=== PATIENT | male | born 1940 | race Caucasian/White ===

== ENCOUNTER → 2018-01-14 09:09 | Outpatient (CLI) | payer OTHER, SELFPAY ==
[2018-01-14 11:32] LABS: Alanine Aminotransferase 72 IU/L (21-72); Albumin 4.3 g/dL (3.5-5.0); Albumin Globulin Ratio 1.2 (1.0-2.8); Alkaline Phosphatase 58 U/L (38-126); Aspartate Aminotransferase 66 IU/L (17-59); Bilirubin Total 0.7 mg/dL (0.2-1.3); Bilirubin Unconjugated 0.5 mg/dL (0.0-1.1); Cholesterol 129 mg/dL (140-199); Globulin 3.5 g/dL (1.7-4.1); HDL Cholesterol 36 mg/dL (40-60); HEMOLYSIS 17 (0-50); LDL Cholesterol Calculated 68 mg/dL (<100); Total Protein 7.8 g/dL (6.3-8.2); Triglycerides 126 mg/dL (35-150)
== END ==
PROVIDERS: Family Provider Internal Medicine; PCP Internal Medicine; Visit Provider Internal Medicine
DX: K76.0 Fatty (change of) liver, not elsewhere classified (principal); E78.00 Pure hypercholesterolemia, unspecified
CPT/HCPCS: 36415; 80061; 80076

== ENCOUNTER → 2018-03-03 16:47 | Outpatient (CLI) | payer OTHER, SELFPAY ==
--- NOTE | 2018-03-03 | DI.RAD.S_ITS ---
PROCEDURE: XR FOOT LT MIN 3V INDICATIONS: Foot Pain TECHNIQUE: 3 views of the foot were acquired. COMPARISON: 02/16/2005. FINDINGS: Bones: No fractures or dislocations. No suspicious bony lesions. Healed fracture deformity in the proximal left fifth phalanx. Soft tissues: No tibiotalar joint effusion. Achilles tendon appears normal. IMPRESSION: No acute fractures or dislocations. If symptoms persist consider followup radiographs in 7-10 days or noncontrast MRI if there is concern for osteomyelitis. Dictated by: Rolando Chambers M.D. on 03/03/2018 at 17:25 Approved by: Rolando Chambers M.D. on 03/03/2018 at 17:27
--- NOTE | 2018-03-03 16:51 | DI.RAD.S_ITS ---
PROCEDURE: XR FOOT RT MIN 3V INDICATIONS: RIGHT FOOT PAIN TECHNIQUE: 3 views of the foot were acquired. COMPARISON: None. FINDINGS: Bones: No fractures or dislocations. No suspicious bony lesions. Soft tissues: No tibiotalar joint effusion. Achilles tendon appears normal. IMPRESSION: No acute fractures or dislocations. Dictated by: Rolando Chambers M.D. on 03/03/2018 at 17:27 Approved by: Rolando Chambers M.D. on 03/03/2018 at 17:27
== END ==
PROVIDERS: Family Provider Internal Medicine; PCP Internal Medicine; Visit Provider Internal Medicine
DX: M79.671 Pain in right foot (principal); M79.672 Pain in left foot
CPT/HCPCS: 73630

== ENCOUNTER → 2018-03-05 11:56 | Outpatient (CLI) | payer OTHER, SELFPAY ==
[2018-03-05 12:55] LABS: Uric Acid 6.4 mg/dL (3.5-8.5)
== END ==
PROVIDERS: Family Provider Internal Medicine; PCP Internal Medicine; Visit Provider Internal Medicine
DX: M15.0 Primary generalized (osteo)arthritis (principal)
CPT/HCPCS: 36415; 84550

== ENCOUNTER → 2018-09-11 13:36 | Outpatient (CLI) | payer OTHER, SELFPAY ==
[2018-09-11 15:01] LABS: Alanine Aminotransferase 84 IU/L (21-72); Albumin 4.5 g/dL (3.5-5.0); Albumin Globulin Ratio 1.4 (1.0-2.8); Alkaline Phosphatase 53 U/L (38-126); Aspartate Aminotransferase 58 IU/L (17-59); BUN Creatinine Ratio 14.4 (6-22); Bilirubin Total 1.1 mg/dL (0.2-1.3); Blood Urea Nitrogen 13 mg/dL (9-20); Calcium 9.9 mg/dL (8.4-10.2); Carbon Dioxide 28 mmol/L (22-32); Chloride 101 mmol/L (98-107); Cholesterol 147 mg/dL (140-199); Estimated Glomerular Filt Rate > 60.0 mL/min (>60); Globulin 3.3 g/dL (1.7-4.1); Glucose 78 mg/dL (80-110); HDL Cholesterol 39 mg/dL (40-60); HEMOLYSIS 25 (0-50); LDL Cholesterol Calculated 85 mg/dL (<100); Potassium 4.7 mmol/L (3.4-5.1); Sodium 140 mmol/L (137-145); Total Protein 7.8 g/dL (6.3-8.2); Triglycerides 116 mg/dL (35-150)
== END ==
PROVIDERS: PCP Internal Medicine; Visit Provider Internal Medicine
DX: E78.00 Pure hypercholesterolemia, unspecified (principal); R74.0 Nonspecific elevation of levels of transaminase and lactic acid dehydrogenase [LDH]
CPT/HCPCS: 36415; 80053; 80061

== ENCOUNTER → 2019-02-17 11:34 | Outpatient (CLI) | payer OTHER, SELFPAY ==
[2019-02-17 12:32] LABS: Add Manual Diff / Slide Review NO; Basophils Absolute Auto 100 /uL (0-100); Basophils Percent Auto 0.7 % (0-2); Eosinophils Absolute Auto 200 /uL (0-450); Eosinophils Percent Auto 1.5 % (2-4); Hematocrit 41.8 % (41-53); Hemoglobin 14.1 g/dL (13.5-17.5); Lymphocytes Absolute Auto 2100 /uL (1100-4500); Lymphocytes Percent Auto 18.2 % (25-40); Mean Corpuscular HGB Conc 33.6 % (30-36); Mean Corpuscular Volume 92.2 fL (80-100); Monocytes Absolute Auto 1000 /uL (0-900); Monocytes Percent Auto 8.9 % (3-14); Neutrophils Absolute Auto 8300 /uL (1500-7000); Neutrophils Percent Auto 70.7 % (50-75); Platelet Count 256 X10^3/uL (150-400); Red Blood Cell Count 4.54 X10^6/uL (4.5-5.9); Red Cell Distribution Width 12.9 % (11.6-14.8); White Blood Cell Count 11.7 X10^3/uL (4.5-11.0)
[2019-02-17 13:11] LABS: Erythrocyte Sedimentation Rate 41 MM/HR (0-15)
[2019-02-17 13:13] LABS: Alanine Aminotransferase 66 IU/L (21-72); Albumin 4.1 g/dL (3.5-5.0); Albumin Globulin Ratio 1.4 (1.0-2.8); Alkaline Phosphatase 77 U/L (38-126); Aspartate Aminotransferase 43 IU/L (17-59); BUN Creatinine Ratio 13.8 (6-22); Blood Urea Nitrogen 11 mg/dL (9-20); Calcium 9.9 mg/dL (8.4-10.2); Carbon Dioxide 25 mmol/L (22-32); Chloride 103 mmol/L (98-107); Estimated Glomerular Filt Rate > 60.0 mL/min (>60); Globulin 2.9 g/dL (1.7-4.1); Glucose 90 mg/dL (80-110); HEMOLYSIS < 15 (0-50); Potassium 4.4 mmol/L (3.4-5.1); Sodium 140 mmol/L (137-145)
[2019-02-17 13:42] LABS: Prostate Specific Antigen Scrn 0.695 ng/mL (0.1-4.0); TSH w/ Reflex to FT4 1.39 uIU/mL (0.47-4.68)
== END ==
PROVIDERS: Family Provider Internal Medicine; PCP Internal Medicine; Visit Provider Internal Medicine
DX: R63.4 Abnormal weight loss (principal); R53.83 Other fatigue; Z12.5 Encounter for screening for malignant neoplasm of prostate
CPT/HCPCS: 36415; 80053; 84443; 85025; 85651; G0103

== ENCOUNTER → 2019-02-20 17:47 | Outpatient (CLI) | payer OTHER, SELFPAY ==
[2019-02-20 19:19] LABS: Clostridium Difficile Tox PCR Negative for C. diff
== END ==
PROVIDERS: Family Provider Internal Medicine; PCP Internal Medicine; Visit Provider Internal Medicine
DX: R19.7 Diarrhea, unspecified (principal)
CPT/HCPCS: 87493

== ENCOUNTER → 2019-05-25 15:58 | Outpatient (CLI) | payer OTHER, SELFPAY ==
[2019-05-25 16:15] LABS: Add Manual Diff / Slide Review NO; Basophils Absolute Auto 100 /uL (0-100); Basophils Percent Auto 1.1 % (0-2); Eosinophils Absolute Auto 300 /uL (0-450); Eosinophils Percent Auto 3.2 % (2-4); Hematocrit 42.4 % (41-53); Hemoglobin 14.1 g/dL (13.5-17.5); Lymphocytes Absolute Auto 2700 /uL (1100-4500); Lymphocytes Percent Auto 27.3 % (25-40); Mean Corpuscular HGB Conc 33.2 % (30-36); Mean Corpuscular Volume 93.4 fL (80-100); Monocytes Absolute Auto 800 /uL (0-900); Monocytes Percent Auto 8.4 % (3-14); Neutrophils Absolute Auto 5900 /uL (1500-7000); Platelet Count 283 X10^3/uL (150-400); Red Blood Cell Count 4.55 X10^6/uL (4.5-5.9); Red Cell Distribution Width 13.5 % (11.6-14.8); White Blood Cell Count 9.9 X10^3/uL (4.5-11.0)
[2019-05-25 16:45] LABS: Alanine Aminotransferase 58 IU/L (21-72); Albumin 4.3 g/dL (3.5-5.0); Albumin Globulin Ratio 1.4 (1.0-2.8); Alkaline Phosphatase 66 U/L (38-126); Aspartate Aminotransferase 39 IU/L (17-59); Bilirubin Total 0.4 mg/dL (0.2-1.3); Blood Urea Nitrogen 12 mg/dL (9-20); Calcium 9.8 mg/dL (8.4-10.2); Carbon Dioxide 26 mmol/L (22-32); Chloride 101 mmol/L (98-107); Estimated Glomerular Filt Rate > 60.0 mL/min (>60); Globulin 3.1 g/dL (1.7-4.1); Glucose 98 mg/dL (80-110); HEMOLYSIS < 15 (0-50); Potassium 3.9 mmol/L (3.4-5.1); Sodium 138 mmol/L (137-145); Total Protein 7.4 g/dL (6.3-8.2)
[2019-05-25 17:15] LABS: TSH w/ Reflex to FT4 2.76 uIU/mL (0.47-4.68)
== END ==
PROVIDERS: PCP Internal Medicine; Visit Provider Internal Medicine
DX: F32.9 Major depressive disorder, single episode, unspecified (principal); R19.7 Diarrhea, unspecified; R63.4 Abnormal weight loss
CPT/HCPCS: 36415; 80053; 84443; 85025

== ENCOUNTER → 2019-06-04 10:03 | Outpatient (CLI) | payer OTHER, SELFPAY ==
--- NOTE | 2019-06-04 | DI.CT.S_ITS ---
PROCEDURE: CT ABDOMEN PELVIS W CON INDICATIONS: Abnormal weight loss TECHNIQUE: After the administration of oral and intravenous contrast, 5 mm thick sections acquired from the diaphragms to the symphysis. 5 mm thick coronal and sagittal reformats were performed. For radiation dose reduction, the following was used: automated exposure control, adjustment of mA and/or kV according to patient size. COMPARISON: None. FINDINGS: Image quality: Excellent. ABDOMEN: Lung bases: Lung bases are clear. Heart size is normal. Solid organs: Liver is normal in size and enhancement. Gallbladder is unremarkable. Biliary system is non-dilated. Pancreas enhances normally. Spleen is normal in size and enhancement. No adrenal nodules. Kidneys are normal in size and enhancement, without hydronephrosis. Peritoneum and bowel: Stomach, small bowel, and colon loops are normal in caliber and wall thickness. No free fluid or air. Nodes and vessels: No retroperitoneal or mesenteric adenopathy. Aorta and inferior vena cava are normal in caliber. Miscellaneous: Very minimal periumbilical hernia containing fat. PELVIS: Genitourinary: Prostate enlargement. Mild diffuse pleural thickening. Miscellaneous: No inguinal hernias or adenopathy. Bones: No suspicious bony lesions. No vertebral body compression fractures. IMPRESSION: 1. Prostate enlargement. 2. Mild diffuse pleural thickening. 3. Minimal periumbilical hernia containing fat. 4. No evidence of malignancy. No evidence of acute abdominal process. Dictated by: Martir Carvalho M.D. on 06/04/2019 at 12:47 Approved by: Martir Carvalho M.D. on 06/04/2019 at 12:51
== END ==
PROVIDERS: PCP Internal Medicine; Visit Provider Internal Medicine
DX: R63.4 Abnormal weight loss (principal); J92.9 Pleural plaque without asbestos; N40.0 Benign prostatic hyperplasia without lower urinary tract symptoms
CPT/HCPCS: 74177; Q9967

== ENCOUNTER → 2019-10-26 19:08 | Outpatient (ROUT) | payer MEDICARE, SELFPAY ==
[2019-10-26 20:31] LABS: Vitamin B12 524 pg/mL (239-931)
== END ==
PROVIDERS: PCP Internal Medicine; Visit Provider Internal Medicine
DX: F32.9 Major depressive disorder, single episode, unspecified (principal); R63.4 Abnormal weight loss; K58.0 Irritable bowel syndrome with diarrhea
CPT/HCPCS: 82607

== ENCOUNTER → 2020-03-16 12:13 | Outpatient (CLI) | payer MEDICARE, SELFPAY ==
[2020-03-16 13:13] LABS: Add Manual Diff / Slide Review NO; Basophils Absolute Auto 100 /uL (0-100); Eosinophils Absolute Auto 200 /uL (0-450); Eosinophils Percent Auto 2.4 % (2-4); Hematocrit 43.2 % (41-53); Hemoglobin 14.3 g/dL (13.5-17.5); Lymphocytes Absolute Auto 2600 /uL (1100-4500); Lymphocytes Percent Auto 28.7 % (25-40); Mean Corpuscular HGB Conc 33.1 % (30-36); Mean Corpuscular Hemoglobin 31.4 PG (26-34); Mean Corpuscular Volume 94.8 fL (80-100); Monocytes Absolute Auto 800 /uL (0-900); Monocytes Percent Auto 8.5 % (3-14); Neutrophils Absolute Auto 5400 /uL (1500-7000); Neutrophils Percent Auto 59.4 % (50-75); Platelet Count 248 X10^3/uL (150-400); Red Blood Cell Count 4.55 X10^6/uL (4.5-5.9); Red Cell Distribution Width 12.6 % (11.6-14.8)
[2020-03-16 13:55] LABS: Alanine Aminotransferase 37 IU/L (<50); Albumin 4.5 g/dL (3.5-5.0); Albumin Globulin Ratio 1.4 (1.0-2.8); Alkaline Phosphatase 62 U/L (38-126); Aspartate Aminotransferase 37 IU/L (17-59); BUN Creatinine Ratio 16.9 (6-22); Blood Urea Nitrogen 13 mg/dL (9-20); Calcium 10.1 mg/dL (8.4-10.2); Carbon Dioxide 28 mmol/L (22-32); Chloride 101 mmol/L (98-107); Cholesterol 138 mg/dL (140-199); Estimated Glomerular Filt Rate > 60.0 mL/min (>60); Globulin 3.3 g/dL (1.7-4.1); Glucose 96 mg/dL (80-110); HDL Cholesterol 42 mg/dL (40-60); HEMOLYSIS < 15 (0-50); LDL Cholesterol Calculated 77 mg/dL (<100); Potassium 4.3 mmol/L (3.4-5.1); Sodium 137 mmol/L (137-145); Total Protein 7.8 g/dL (6.3-8.2); Triglycerides 96 mg/dL (35-150)
== END ==
PROVIDERS: PCP Internal Medicine; Referring Provider Internal Medicine; Visit Provider Internal Medicine
DX: E78.00 Pure hypercholesterolemia, unspecified (principal); M15.0 Primary generalized (osteo)arthritis
CPT/HCPCS: 36415; 80053; 80061; 85025

== ENCOUNTER → 2021-05-16 11:24 | Outpatient (CLI) | payer OTHER, SELFPAY ==
[2021-05-16 12:16] LABS: Add Manual Diff / Slide Review NO; Basophils Absolute Auto 100 /uL (0-100); Basophils Percent Auto 1.2 % (0-2); Eosinophils Absolute Auto 400 /uL (0-450); Eosinophils Percent Auto 5.1 % (2-4); Hematocrit 40.6 % (41-53); Hemoglobin 13.5 g/dL (13.5-17.5); Lymphocytes Absolute Auto 2700 /uL (1100-4500); Lymphocytes Percent Auto 34.7 % (25-40); Mean Corpuscular HGB Conc 33.1 % (30-36); Mean Corpuscular Hemoglobin 31.3 PG (26-34); Mean Corpuscular Volume 94.4 fL (80-100); Monocytes Absolute Auto 700 /uL (0-900); Monocytes Percent Auto 8.8 % (3-14); Neutrophils Absolute Auto 3900 /uL (1500-7000); Neutrophils Percent Auto 50.2 % (50-75); Platelet Count 253 X10^3/uL (150-400); Red Cell Distribution Width 12.8 % (11.6-14.8); White Blood Cell Count 7.7 X10^3/uL (4.5-11.0)
[2021-05-16 12:42] LABS: Alanine Aminotransferase 42 IU/L (<50); Albumin 4.3 g/dL (3.5-5.0); Albumin Globulin Ratio 1.3 (1.0-2.8); Alkaline Phosphatase 57 U/L (38-126); Aspartate Aminotransferase 36 IU/L (17-59); BUN Creatinine Ratio 13.5 (6-22); Bilirubin Total 0.6 mg/dL (0.2-1.3); Blood Urea Nitrogen 10 mg/dL (9-20); Calcium 9.8 mg/dL (8.4-10.2); Carbon Dioxide 26 mmol/L (22-32); Chloride 104 mmol/L (98-107); Cholesterol 127 mg/dL (140-199); Estimated Glomerular Filt Rate > 60.0 mL/min (>60); Globulin 3.2 g/dL (1.7-4.1); Glucose 96 mg/dL (80-110); HDL Cholesterol 37 mg/dL (40-60); HEMOLYSIS < 15 (0-50); LDL Cholesterol Calculated 64 mg/dL (<100); Potassium 4.6 mmol/L (3.4-5.1); Sodium 139 mmol/L (137-145); Total Protein 7.5 g/dL (6.3-8.2); Triglycerides 132 mg/dL (35-150)
[2021-05-16 13:13] LABS: TSH w/ Reflex to FT4 2.89 uIU/mL (0.47-4.68)
== END ==
PROVIDERS: PCP Internal Medicine; Referring Provider Internal Medicine; Visit Provider Internal Medicine
DX: F32.1 Major depressive disorder, single episode, moderate (principal); E78.00 Pure hypercholesterolemia, unspecified; K21.9 Gastro-esophageal reflux disease without esophagitis
CPT/HCPCS: 36415; 80053; 80061; 84443; 85025

== ENCOUNTER → 2021-09-06 09:39 | Outpatient (CLI) | payer MEDICARE, SELFPAY ==
--- NOTE | 2021-09-06 | DI.MRI.S_ITS ---
PROCEDURE: MR LOWER LEG RT WO CON INDICATIONS: Pain in right knee TECHNIQUE: Noncontrast coronal and sagittal T1 spin echo and STIR; axial T1 spin echo and T2 fast spin echo with fat saturation through the right lower leg. COMPARISON: None. FINDINGS: Image quality: Excellent. Bones: There is no marrow edema. The overlying cortex appears intact. No fractures lines or intra-osseous lesions. Mild tricompartmental osteoarthritis in right knee is seen. Mild tibiotalar joint osteoarthritic changes also noted. Soft tissues: There is fat signal structure involving medial and superficial portion of soleus muscle deep to the medial head of gastrocnemius and measures approximately 1.1 x 2.2 x 4.2 cm in size series 7, image 29 and series 5, image 27 likely represent intramuscular lipoma. The scanned muscles demonstrate normal overall bulk and internal signal. Subcutaneous tissues appear normal as well. No soft tissue masses are present. No signal abnormality is noted in common peroneal nerve, deep and superficial peroneal nerves. IMPRESSION: 1. 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 No marrow edema. No fracture or dislocation. No suspicious intraosseous lesion. 2. No gross muscle or tendon signal abnormality in right lower leg. Incidentally noted of likely benign lipoma within superficial portion of soleus muscle deep to medial head of gastrocnemius. No suspicious intramuscular lesion. 3. No signal abnormality is seen in common peroneal, deep and superficial peroneal nerves. Dictated by: Kwesi Medrano M.D. on 09/06/2021 at 10:36 Approved by: Kwesi Medrano M.D. on 09/06/2021 at 10:57
== END ==
PROVIDERS: PCP Internal Medicine; Referring Provider Orthopaedic Surgery Foot and Ankle Surgery; Visit Provider Orthopaedic Surgery Foot and Ankle Surgery
DX: M17.11 Unilateral primary osteoarthritis, right knee (principal); M25.561 Pain in right knee
CPT/HCPCS: 73718

== ENCOUNTER 2022-01-01 15:54 | Emergency (ER) | payer MEDICARE, SELFPAY ==
[2022-01-01 16:10] VITALS: BP 138/73; PULSE 68; RESP 16; TEMP 37.1; BMI 28.2
--- NOTE | 2022-01-01 17:49 | DI.CT.S_ITS ---
PROCEDURE: CT HEAD/BRAIN WO CON INDICATIONS: head injury TECHNIQUE: Noncontrast 4.5 mm thick angled axial sections acquired from the foramen magnum to the vertex, with coronal and sagittal reformats. For radiation dose reduction, the following was used: automated exposure control, adjustment of mA and/or kV according to patient size. COMPARISON: None. FINDINGS: Image quality: Excellent. CSF spaces: Basal cisterns are patent. No extra-axial fluid collections. The ventricles are symmetric in size and shape. Brain: No intracranial bleeds or masses. There is cerebral volume loss for age, with resultant ventricular and sulcal prominence. There are periventricular and deep white matter chronic small vessel ischemic changes. There is intracranial internal carotid artery atherosclerosis. Skull and face: Calvarium and visualized facial bones appear intact, without suspicious lesions. Sinuses: Visualized sinuses and mastoids are clear. IMPRESSION: No acute intracranial disease process. Dictated by: Christy Blake MD, PhD on 01/01/2022 at 18:37 Approved by: Christy Blake MD, PhD on 01/01/2022 at 18:38
--- NOTE | 2022-01-01 17:49 | ED_ITS ---
HPI - Head Injury General Chief complaint: Head Injury Stated complaint: Head Laceration, Sent From [facility] Time Seen by Provider: 01/01/22 17:46 Source: patient Mode of arrival: Ambulatory History of Present Illness HPI Narrative: 81-year-old male nonsmoker with noncontributory medical history presents at the request of the walk-in clinic for evaluation of a head injury suffered yesterday. He does not take blood thinners and denies any alcohol or street drugs. He denies any other injury. He was working in his new camper and accidentally hit his head on a support bracket and suffered a laceration on his scalp. He denies any loss of consciousness, nausea or vomiting. He is not dizzy nor weak or lightheaded. Denies blurred vision or trouble with speech. He denies any numbness, tingling or weakness. He thinks his tetanus has been within the past 5 or 6 years. He denies any neck or back pain and is otherwise well and free of complaint. He had presented to the walk-in clinic and was sent here for evaluation Related Data Allergies Allergy/AdvReac Type Severity Reaction Status Date / Time penicillin V [PENICILLIN V] Allergy Severe RASH Unverified 01/01/22 15:54 Review of Systems Review of Systems Narrative: GENERAL: Denies chills, fatigue, malaise, fever, sweats. HEENT: Denies sinus pain, ear pain, sore throat, difficulty swallowing, dizziness. RESPIRATORY: Denies dyspnea, cough, wheezing, hemoptysis, sputum. CARDIOVASCULAR: Denies chest pain, palpitations, orthopnea, edema, GASTROINTESTINAL: Denies nausea, vomiting, abdominal pain, diarrhea, constipation, melena. : Denies dysuria, frequency, incontinence, hematuria, urinary retention. MUSCULOSKELETAL: denies weakness, joint pain, or bony pain SKIN: See HPI NEUROLOGIC: Denies weakness, headache, numbness, change in speech, confusion, seizures, incoordination. PSYCHIATRIC: No concerning psychosocial issues. 12 point review of systems is negative except for those stated above Patient History Social History Smoking Status: Smoker, status unknown Smoking Status: Smoker, status unknown alcohol intake frequency: 0-2 drinks per day Substance Use Type: does not use Exam Narrative Exam Narrative: GENERAL: [81] year old patient appears stated age. Well-developed patient, in mild distress. HEAD: 2 cm laceration on scalp is scabbed over, not bleeding, even with vigorous rubbing and attempts to evaluate, the wound is greater than 24 hours old. No evidence of depressed skull fracture EYES: Pupils equal round and reactive. Extraocular motions intact. No scleral icterus. No injection or drainage. ENT: Nose without bleeding, purulent drainage. Throat without erythema, tonsillar hypertrophy or exudate. Airway patent. NECK: Trachea midline. Non tender CARDIOVASCULAR: Regular rate and rhythm without murmurs, gallops, or rubs. RESPIRATORY: Clear to auscultation. Breath sounds equal bilaterally. No wheezes, rales, or rhonchi. GASTROINTESTINAL: Abdomen soft, non-tender, nondistended. EXTREMITIES: No edema or joint tenderness. BACK: Nontender without deformity or crepitance. No flank tenderness. NEURO: AOx3. SKIN: No rash or erythema of visible areas Initial Vital Signs Initial Vital Signs: Vital Signs Temperature 98.8 F 01/01/22 16:10 Pulse Rate 68 01/01/22 16:10 Respiratory Rate 16 01/01/22 16:10 Blood Pressure 138/73 01/01/22 16:10 Course Orders Ordered: ED Orders 01/01/22 17:49 CT head/brain wo con Stat Vital Signs Vital signs: Vital Signs - 8 hr 01/01/22 16:10 Temperature 98.8 F Pulse Rate 68 Respiratory Rate 16 Blood Pressure 138/73 MDM - Head Injury Imaging Data CT scan - head: Radiologist's Impression: [address] [address] [address] Scan Report Signed Patient: Ariel Burrell MR#: [id number] : 1940 Acct:[id number] Age/Sex: 81 / M Date of Service: 01/01/22 Loc: ED Accession Number: [id number] ?? Procedure: CT head/brain wo con Ordering Provider: Jack Hdz D.O. PROCEDURE:? CT HEAD/BRAIN WO CON ? INDICATIONS:? head injury ? TECHNIQUE:? Noncontrast 4.5 mm thick angled axial sections acquired from the foramen magnum to the vertex, with coronal and sagittal reformats.? For radiation dose reduction, the following was used:? automated exposure control, adjustment of mA and/or kV according to patient size.? ? COMPARISON:? None. ? FINDINGS:? Image quality:? Excellent.? ? CSF spaces:? Basal cisterns are patent.? No extra-axial fluid collections.? The ventricles are symmetric in size and shape.? ? Brain:? No intracranial bleeds or masses.? There is cerebral volume loss for age, with resultant ventricular and sulcal prominence.? There are periventricular and deep white matter chronic small vessel ischemic changes.? There is intracranial internal carotid artery atherosclerosis.? ? Skull and face:? Calvarium and visualized facial bones appear intact, without suspicious lesions.? ? Sinuses:? Visualized sinuses and mastoids are clear.? ? IMPRESSION:? No acute intracranial disease process. ? ? Dictated by: Christy Blake MD, PhD on 01/01/2022 at 18:37 ? ? Approved by: Christy Blake MD, PhD on 01/01/2022 at 18:38 ? MDM Narrative Medical decision making narrative: 81M presents for evaluation of a minor head injury suffered yesterday. He bumped his head on a hard object in his trailer and suffered a laceration. He had no loss of consciousness or other red flag symptoms. His wound is already largely healed and not appropriate for repair. CT scan is unremarkable. The remainder was history and physical exam are reassuring. Return precautions given and questions answered to his apparent satisfaction Discharge Plan Departure Patient Disposition: Home Clinical Impression: Closed head injury, Laceration of scalp Instructions: DI for Closed Head Injury Activity Restrictions/Additional Instructions: *You have been diagnosed with [minor head injury with scalp laceration that has already largely healed. As we discussed as this happened yesterday and is already beginning to heal there is no indication for sutures or ann marie. Furthermore, your CT scan is great and there is no evidence of bleeding in your brain or other evidence of injury. *What to do: *Please continue to take your regular medications as directed. [ ] New medication prescriptions sent to your pharmacy: [ ] [ ] New medication written as a paper prescription [x] No new medications given *Please follow up with your primary care provider in 2-3 days, call for an appointment. Let them know you were seen in the Emergency Department and that we ask that you be seen in follow up. We will electronically transmit a record of today's note if your PCP is in our system *If you do not have a primary care provider please contact the [facility] Resource line at [phone]. They will ask some questions about your medical history and help get you set up with a doctor in the community. *Return to Emergency Department if you should have any new, worsening or concerning symptoms, such as [fever greater than 101 F, shaking chills, worsening pain, persistent vomiting or other bothersome symptoms] Referrals: Josh Parish MD [Primary Care Provider] -
[2022-01-01 19:14] VITALS: BP 135/101; PULSE 56; RESP 18; O2SAT 97
== END 2022-01-01 19:15 | disposition home or self-care (01) ==
PROVIDERS: Emergency Provider Emergency Medicine; PCP Internal Medicine
DX: S01.01XA Laceration without foreign body of scalp, initial encounter (principal); W22.8XXA Striking against or struck by other objects, initial encounter
CPT/HCPCS: 70450; 99281; 99283

== ENCOUNTER → 2022-03-04 10:31 | Outpatient (CLI) | payer MEDICARE, SELFPAY ==
--- NOTE | 2022-03-04 10:33 | DI.MRI.S_ITS ---
PROCEDURE: MR HEAD/BRAIN WO CON INDICATIONS: Headache, unspecified TECHNIQUE: Non-contrast axial T1 spin echo, axial T2 fast spin echo, sagittal and axial FLAIR, coronal T2 fast spin echo, axial gradient echo, axial diffusion and ADC through the brain. COMPARISON: [facility], CT, CT HEAD/BRAIN WO CON, 01/01/2022, 17:51. FINDINGS: Image quality: Excellent. CSF spaces: Ventricles appear symmetric in size and shape. Basal cisterns are patent. No extra-axial fluid collections. Brain: There is subdural high FLAIR signal intensity overlying the left frontal and parietal lobes, demonstrating a maximal thickness of roughly 5 mm overlying the left frontal lobe. There is subdural high FLAIR signal intensity overlying the right frontal lobe, with a maximal thickness of roughly 2 mm. There is cerebral volume loss for age. There are periventricular and deep white matter chronic small vessel ischemic changes. Brainstem appears normal. Diffusion-weighted images show no acute ischemic insults. No chronic ischemic insults. Normal intravascular flow voids are present. Skull and face: Calvarial bone marrow is normal in signal. Orbits are normal. Sinuses: Small bilateral maxillary sinus retention cysts. Sinuses and mastoids are otherwise clear. IMPRESSION: 1. Small left greater than right bilateral subdural hematomas, which appear subacute. 2. No midline shift. 3. Findings discussed with Dr. Parish on 03/05/2022 at 10:00 hours. Dictated by: Delicia Goetz M.D. on 03/05/2022 at 8:58 Transcribed by: FAZAL on 03/05/2022 at 9:06 Approved by: Delicia Goetz M.D. on 03/05/2022 at 10:02
== END ==
PROVIDERS: PCP Internal Medicine; Referring Provider Internal Medicine; Visit Provider Internal Medicine
DX: I62.00 Nontraumatic subdural hemorrhage, unspecified (principal); R51.9 Headache, unspecified
CPT/HCPCS: 70551

== ENCOUNTER → 2022-04-08 10:38 | Outpatient (CLI) | payer MEDICARE, SELFPAY ==
--- NOTE | 2022-04-08 10:40 | DI.MRI.S_ITS ---
PROCEDURE: MR HEAD/BRAIN WO CON INDICATIONS: Post-traumatic headache, unspecified, not intracta TECHNIQUE: Noncontrast axial T1 spin echo, axial T2 fast spin echo, sagittal and axial FLAIR, coronal T2 fast spin echo, axial gradient echo, axial diffusion and ADC through the brain. COMPARISON: [facility], CT, CT HEAD/BRAIN WO CON, 01/01/2022, 17:51. [facility], MR, MR HEAD/BRAIN WO CON, 03/04/2022, 10:47. FINDINGS: Image quality: Excellent. CSF Spaces: Basal cisterns are patent. No extra-axial fluid collections. Ventricles are normal in size and shape. Brain: Left subdural increased FLAIR signal seen on the prior MRI on 03/04/2022 which measured up to 5 mm in thickness has resolved and there is a symmetric appearance. No intracranial masses or hemorrhage. Verde/white matter interface is normal. Brainstem appears normal. Diffusion-weighted images demonstrate no acute ischemic insult. No chronic ischemic insults. No significant small-vessel ischemic disease is identified. Normal intravascular flow voids are present. Skull and face: Calvarium has normal marrow signal. Orbits appear normal. Sinuses: Sinuses and mastoids are clear. IMPRESSION: 1. Previously described left greater than right bilateral subdural hematoma has mostly resolved and has a symmetric appearance. 2. No acute intracranial abnormality. Dictated by: Vik Lei M.D. on 04/09/2022 at 8:43 Approved by: Vik Lei M.D. on 04/09/2022 at 8:50
== END ==
PROVIDERS: PCP Internal Medicine; Referring Provider Neurological Surgery; Visit Provider Neurological Surgery
DX: G93.89 Other specified disorders of brain (principal); G44.309 Post-traumatic headache, unspecified, not intractable; S06.5X9D Traumatic subdural hemorrhage with loss of consciousness of unspecified duration, subsequent encounter
CPT/HCPCS: 70551

== ENCOUNTER 2022-10-25 13:25 | Emergency (ER) | payer MEDICARE, SELFPAY ==
[2022-10-25] VITALS (9 sets, daily range): BP systolic 122–147; BP diastolic 54–71; PULSE 71–89; RESP 14–20; TEMP 36.8; O2SAT 96–100; BMI 26.3
[2022-10-25 14:03] LABS: Add Manual Diff / Slide Review NO; Basophils Absolute Auto 100 /uL (0-100); Basophils Percent Auto 0.9 % (0-2); Eosinophils Absolute Auto 200 /uL (0-450); Eosinophils Percent Auto 1.2 % (2-4); Hematocrit 41.3 % (41-53); Hemoglobin 13.8 g/dL (13.5-17.5); Lymphocytes Absolute Auto 2200 /uL (1100-4500); Lymphocytes Percent Auto 14.5 % (25-40); Mean Corpuscular HGB Conc 33.3 % (30-36); Mean Corpuscular Hemoglobin 31.1 PG (26-34); Mean Corpuscular Volume 93.2 fL (80-100); Monocytes Absolute Auto 1500 /uL (0-900); Monocytes Percent Auto 9.7 % (3-14); Neutrophils Absolute Auto 11200 /uL (1500-7000); Neutrophils Percent Auto 73.7 % (50-75); Platelet Count 226 X10^3/uL (150-400); Red Blood Cell Count 4.44 X10^6/uL (4.5-5.9); Red Cell Distribution Width 12.8 % (11.6-14.8); White Blood Cell Count 15.2 X10^3/uL (4.5-11.0)
--- NOTE | 2022-10-25 14:14 | DI.CT.S_ITS ---
PROCEDURE: CT ABDOMEN PELVIS W CON INDICATIONS: IV contrast only right lower quadrant pain TECHNIQUE: After the administration of intravenous contrast, axial sections acquired from the lung bases to the pubic symphysis. Coronal and sagittal reformats were performed. For radiation dose reduction, the following was used: automated exposure control, adjustment of mA and/or kV according to patient size. COMPARISON: [facility], CT, CT ABDOMEN PELVIS W CON, 06/04/2019, 11:00. FINDINGS: Image quality: Good Lower chest: Subpleural early fibrotic changes are partially seen. Possible small hiatal hernia. Coronary calcifications. Annular calcifications at the heart. Solid organs: Liver is unremarkable. Possible cholelithiasis. No pathologic dilation of the biliary tree or pancreatic duct. The biliary tree is prominent, similar to prior. No splenomegaly. No adrenal nodules. No hydronephrosis. Vessels and lymph nodes: The main portal vein is patent. No abdominal aortic aneurysm. There are atherosclerotic calcifications. No pathologic adenopathy by size criteria. Bowel and peritoneum: No evidence of small bowel obstruction. There is mild fat stranding of the jejunal mesentery, possibly due to nonspecific panniculitis. Colonic diverticula are present. No pathologic ascites. Acute appendicitis, with appendicoliths. Body wall: Small fat containing umbilical hernia. Pelvis: Prostate enlargement and heterogeneity, consider correlation with PSA. Bladder is unremarkable. Bones: There are degenerative changes. No acute or suspicious osseous finding. IMPRESSION: Acute appendicitis. No drainable abscess is identified. There are appendicoliths. Other incidental and likely nonacute findings, as above. Dictated by: Félix Healy M.D. on 10/25/2022 at 15:02 Approved by: Félix Healy M.D. on 10/25/2022 at 15:08
--- NOTE | 2022-10-25 14:14 | ED.ABDPAIN ---
HPI - Abdominal Pain General Chief Complaint: Abdominal Pain Stated Complaint: pain RT lower ABD pain T-1 Time Seen by Provider: 10/25/22 14:06 Source: patient Mode of arrival: Ambulatory History of Present Illness HPI narrative: Patient here for right lower quadrant pain since last night. No nausea or vomiting no urinary complaints no back pain. Is dull achy sharp. Worse with movement and palpation. No chest pain no back pain. No diarrhea black or bloody stools. Patient thinks he still has his appendix. Patient 3 months ago started Neurontin for leg discomfort. He states it made him feel bad, at times he would have chest discomfort. However this was 3 months ago. No chest pain recently otherwise or today or yesterday Related Data Home Medications Medication Instructions Recorded Confirmed acetaminophen 325 mg tablet 650 mg PO Q6H PRN Pain (Scale 07/31/22 07/31/22 (Tylenol) Score 4-6) alpha lipoic acid 600 mg capsule 600 mg PO BID 07/31/22 07/31/22 ascorbic acid (vitamin C) 500 mg 500 mg PO DAILY 07/31/22 07/31/22 tablet (Vitamin C) aspirin 81 mg capsule 81 mg PO DAILY 07/31/22 07/31/22 atorvastatin 10 mg tablet (Lipitor) 10 mg PO DAILY 07/31/22 07/31/22 coenzyme Q10 100 mg capsule 100 mg PO DAILY 07/31/22 07/31/22 (CoQ-10) famotidine 20 mg tablet (Pepcid) 20 mg PO BEDTIME 07/31/22 07/31/22 glucosamine JNg-mcv-nigwaqchzlz 1 tab PO DAILY 07/31/22 07/31/22 500 mg-300 mg-400 mg tablet latanoprost 0.005 % eye drops 2 drp ophthalmic (eye) DAILY 07/31/22 07/31/22 magnesium 250 mg tablet 250 mg PO DAILY 07/31/22 07/31/22 multivitamin 1 tab PO DAILY 07/31/22 07/31/22 riboflavin (vitamin B2) 100 mg 100 mg PO DAILY 07/31/22 07/31/22 tablet sertraline 50 mg tablet 50 mg PO DAILY 07/31/22 07/31/22 tamsulosin 0.4 mg capsule 0.4 mg PO BEDTIME 07/31/22 07/31/22 Allergies Allergy/AdvReac Type Severity Reaction Status Date / Time penicillin V [PENICILLIN V] Allergy Severe RASH Verified 10/25/22 13:38 Review of Systems Review of Systems Narrative: GENERAL: negative chills, fatigue, malaise, fever, sweats. HEENT: negative sinus pain, ear pain, sore throat RESPIRATORY: negative dyspnea, cough CARDIOVASCULAR: negative chest pain, palpitations GASTROINTESTINAL: negative nausea, vomiting, positive abdominal pain : negative dysuria, frequency, hematuria MUSCULOSKELETAL: negative muscle or bony pain SKIN: negative rash, skin lesions NEUROLOGIC: negative weakness, numbness ROS Unobtainable: All systems reviewed & are unremarkable except as noted in HPI and below Patient History Social History Smoking Status: Former smoker Smoking Status: Former smoker alcohol intake frequency: 0-2 drinks per day Substance Use Type: does not use Exam Narrative Exam Narrative: GENERAL: in no distress, not toxic not dyspneic HEAD: Normocephalic. EYES: Pupils equal round ENT: Mucous membranes moist. NECK: Trachea midline. CARDIOVASCULAR: Regular rate and rhythm without murmurs RESPIRATORY: Clear to auscultation. Breath sounds equal bilaterally. No wheezes, rales, or rhonchi. GASTROINTESTINAL: Abdomen soft, reproducible McBurney point/right lower quadrant tenderness. No CVA tenderness. No pain out of proportion to exam. Bowel sounds are present. No peritoneal signs EXTREMITIES: No gross deformities. BACK: No flank tenderness. NEURO: AOx4. SKIN: Warm and dry PSYCH: Not anxious, is cooperative Initial Vital Signs Initial Vital Signs: Vital Signs Temperature 98.2 F 10/25/22 13:30 Pulse Rate 89 10/25/22 13:30 Respiratory Rate 14 10/25/22 13:30 Blood Pressure 139/71 10/25/22 13:30 Pulse Oximetry 99 10/25/22 13:30 Oxygen Delivery Method Room Air 10/25/22 13:30 Course Orders Ordered: Discontinued Medications Sodium Chloride (Normal Saline 0.9%) 500 mls @ 1,000 mls/hr IV BOLUS ONE Stop: 10/25/22 14:43 Last Infusion: 10/25/22 15:01 Dose: 0 mls/hr Documented By: Admin: 10/25/22 14:23 Dose: 1,000 mls/hr Documented By: LISA Piperacillin Sod/Tazobactam (Sod 4.5 gm/ Sodium Chloride) 100 mls @ 200 mls/hr IV NOW ONE Stop: 10/25/22 15:27 Last Infusion: 10/25/22 16:15 Dose: 0 mls/hr Documented By: Admin: 10/25/22 15:42 Dose: 200 mls/hr Documented By: DONIS Ondansetron HCl (Ondansetron 4 Mg/2 Ml Inj) 4 mg IV NOW PRN PRN Reason: Nausea And Vomiting Vital Signs Vital signs: Vital Signs - 8 hr 10/25/22 13:30 10/25/22 14:43 10/25/22 14:44 Temperature 98.2 F Pulse Rate 89 81 Respiratory Rate 14 20 Blood Pressure 139/71 135/62 Pulse Oximetry 99 98 Oxygen Delivery Method Room Air 10/25/22 14:44 10/25/22 14:48 10/25/22 14:58 Temperature Pulse Rate 80 71 Respiratory Rate Blood Pressure 122/54 L Pulse Oximetry 99 100 Oxygen Delivery Method 10/25/22 14:58 Temperature Pulse Rate 78 Respiratory Rate Blood Pressure Pulse Oximetry 96 Oxygen Delivery Method MDM - Abdominal Pain Lab Data 10/25/22 13:51 10/25/22 13:51 Labs: Lab Results 10/25/22 10/25/22 10/25/22 Range/Units 13:51 13:51 15:15 WBC 15.2 H (4.5-11.0) X10^3/uL RBC 4.44 L (4.5-5.9) X10^6/uL Hgb 13.8 (13.5-17.5) g/dL Hct 41.3 (41-53) % MCV 93.2 (80-100) fL MCH 31.1 (26-34) PG MCHC 33.3 (30-36) % RDW 12.8 (11.6-14.8) % Plt Count 226 (150-400) X10^3/uL Neut % (Auto) 73.7 (50-75) % Lymph % (Auto) 14.5 L (25-40) % [place] % (Auto) 9.7 (3-14) % Eos % (Auto) 1.2 L (2-4) % Baso % (Auto) 0.9 (0-2) % Neut # (Auto) 28320 H (8243-8454) /uL Lymph # (Auto) 2200 (5869-5086) /uL [place] # (Auto) 1500 H (0-900) /uL Eos # (Auto) 200 (0-450) /uL Baso # (Auto) 100 (0-100) /uL Sodium 138 (137-145) mmol/L Potassium 4.2 (3.4-5.1) mmol/L Chloride 102 (98-107) mmol/L Carbon Dioxide 29 (22-32) mmol/L BUN 10 (9-20) mg/dL Creatinine 0.75 (0.66-1.25) mg/dL Estimated GFR > 60 (>60) mL/min BUN/Creatinine Ratio 13.3 (6-22) Glucose 106 (80-110) mg/dL Calcium 9.1 (8.4-10.2) mg/dL Total Bilirubin 0.8 (0.2-1.3) mg/dL AST 52 (17-59) IU/L ALT 70 H (<50) IU/L Alkaline Phosphatase 71 (38-126) U/L Total Protein 7.9 (6.3-8.2) g/dL Albumin 4.4 (3.5-5.0) g/dL Globulin 3.5 (1.7-4.1) g/dL Albumin/Globulin Ratio 1.3 (1.0-2.8) Lipase 88 (23-300) U/L SARS-CoV-2 (PCR) Negative (Negative) Point of care testing: Urine Dip Bedside Urine Glucose Negative Bedside Urine Bilirubin - Negative Bedside Urine Ketone - Negative Urine Specific [place] 1.010 Bedside Urine Occult Blood - Negative Bedside Urine pH 6.0 Bedside Urine Protein - Negative Bedside Urine Urobilinogen - Negative Bedside Urine Nitrite - Negative Bedside Urine Leukocytes - Negative Esterase Imaging Data CT scan - abdomen/pelvis: Radiologist's Impression: PROCEDURE:? CT ABDOMEN PELVIS W CON ? INDICATIONS:? IV contrast only right lower quadrant pain ? TECHNIQUE:? After the administration of intravenous contrast, axial sections acquired from the lung bases to the pubic symphysis.? Coronal and sagittal reformats were performed.? For radiation dose reduction, the following was used:? automated exposure control, adjustment of mA and/or kV according to patient size.? ? COMPARISON:? [facility], CT, CT ABDOMEN PELVIS W CON, 06/04/2019, 11:00. ? FINDINGS:? Image quality:? Good ? Lower chest:? Subpleural early fibrotic changes are partially seen.? Possible small hiatal hernia.? Coronary calcifications.? Annular calcifications at the heart. ? Solid organs:? Liver is unremarkable.? Possible cholelithiasis.? No pathologic dilation of the biliary tree or pancreatic duct.? The biliary tree is prominent, similar to prior. ?No splenomegaly.? No adrenal nodules.? No hydronephrosis. ? Vessels and lymph nodes:? The main portal vein is patent.? No abdominal aortic aneurysm.? There are atherosclerotic calcifications.? No pathologic adenopathy by size criteria. ? Bowel and peritoneum:? No evidence of small bowel obstruction.? There is mild fat stranding of the jejunal mesentery, possibly due to nonspecific panniculitis.? Colonic diverticula are present.? No pathologic ascites.? Acute appendicitis, with appendicoliths. ? Body wall:? Small fat containing umbilical hernia. ? Pelvis:? Prostate enlargement and heterogeneity, consider correlation with PSA.? Bladder is unremarkable. ? Bones:? There are degenerative changes.? No acute or suspicious osseous finding. ? ? IMPRESSION:? Acute appendicitis.? No drainable abscess is identified.? There are appendicoliths. ? Other incidental and likely nonacute findings, as above.? ? ? Dictated by: Félix Healy M.D. on 10/25/2022 at 15:02 ? ? Approved by: Félix Healy M.D. on 10/25/2022 at 15:08 ? [facility] Narrative Medical decision making narrative: Patient here for right lower quadrant pain since last night. No nausea or vomiting no urinary complaints no back pain. Is dull achy sharp. Worse with movement and palpation. No chest pain no back pain. No diarrhea black or bloody stools. Patient thinks he still has his appendix. Patient 3 months ago started Neurontin for leg discomfort. He states it made him feel bad, at times he would have chest discomfort. However this was 3 months ago. No chest pain recently otherwise or today or yesterday After history and exam CBC CMP lipase urinalysis normal saline Zofran CT scan abdomen pelvis [facility] CC: Right lower quadrant pain Complicating co-morbidities: None Data collected from: Patient Medical records reviewed: No recent visits for this complaint Differential considered: Includes but not limited to appendicitis kidney stone UTI diverticulitis bowel obstruction muscle strain Exam documented above, pertinent findings include: Positive McBurney point tenderness Lab Test results independently reviewed as above. Pertinent findings: WBC 15 AST 52 ALT 70 Independently reviewed EKG as above normal sinus rhythm rate [address] elevation or depression Imaging studies independently reviewed: CT abdomen pelvis positive for appendicitis Consultations: Spoke with general surgery Dr. Dave Perez, he will admit patient at [facility] Treatments: Zosyn/IV fluids Re-evaluations: 3:25 p.m.. Updated patient results of appendicitis on CT scan. He understands operating room here is inoperable. He will need to go to [facility] as that is only Hospital available at this time to accept patient. Penicillin allergy is just or rash around the groin no respiratory complaints. I will order Zosyn Discussion: Appropriate for transfer. Operating room here is contaminated. Need to transfer patient. Patient understands Diagnosis: Acute appendicitis Discharge Plan Departure Patient Disposition: [facility] Clinical Impression: Acute appendicitis Prescriptions: No Action multivitamin Tablet 1 tab PO DAILY latanoprost 0.005 % Drops 2 drp OPHTHALMIC (EYE) DAILY acetaminophen [Tylenol] 325 mg Tablet 650 mg PO Q6H PRN (Reason: Pain (Scale Score 4-6)) atorvastatin [Lipitor] 10 mg Tablet 10 mg PO DAILY riboflavin (vitamin B2) 100 mg Tablet 100 mg PO DAILY famotidine [Pepcid] 20 mg Tablet 20 mg PO BEDTIME ascorbic acid (vitamin C) [Vitamin C] 500 mg Tablet 500 mg PO DAILY tamsulosin 0.4 mg Capsule 0.4 mg PO BEDTIME magnesium 250 mg Tablet 250 mg PO DAILY sertraline 50 mg Tablet 50 mg PO DAILY coenzyme Q10 [CoQ-10] 100 mg Capsule 100 mg PO DAILY glucosamine CSt-qsk-dbkkvzresn 500-300-400 mg Tablet 1 tab PO DAILY alpha lipoic acid 600 mg Capsule 600 mg PO BID aspirin 81 mg Capsule 81 mg PO DAILY Referrals: Pauline Quispe PA-C [Primary Care Provider] -
[2022-10-25 14:15] LABS: Alanine Aminotransferase 70 IU/L (<50); Albumin 4.4 g/dL (3.5-5.0); Albumin Globulin Ratio 1.3 (1.0-2.8); Alkaline Phosphatase 71 U/L (38-126); Aspartate Aminotransferase 52 IU/L (17-59); BUN Creatinine Ratio 13.3 (6-22); Bilirubin Total 0.8 mg/dL (0.2-1.3); Blood Urea Nitrogen 10 mg/dL (9-20); Calcium 9.1 mg/dL (8.4-10.2); Carbon Dioxide 29 mmol/L (22-32); Chloride 102 mmol/L (98-107); Estimated Glomerular Filt Rate > 60 mL/min (>60); Globulin 3.5 g/dL (1.7-4.1); Glucose 106 mg/dL (80-110); HEMOLYSIS < 15 (0-50); Lipase 88 U/L (23-300); Potassium 4.2 mmol/L (3.4-5.1); Sodium 138 mmol/L (137-145); Total Protein 7.9 g/dL (6.3-8.2)
[2022-10-25] MEDS: SODIUM CHLORIDE 0.9% 500 ML 1000 ML IV (14:23)
[2022-10-25] MEDS: PIPERACILLIN/TAZO 4.5 GM in SODIUM CHLORIDE 0.9% 100 ML IV (15:42)
[2022-10-25 15:45] LABS: COVID19 -Nasal RAPID Negative (Negative)
== END 2022-10-25 17:23 | disposition short-term general hospital (02) ==
PROVIDERS: Emergency Provider Emergency Medicine; PCP Physician Assistant
DX: K35.80 Unspecified acute appendicitis (principal); Z20.822 Contact with and (suspected) exposure to COVID-19; R10.9 Unspecified abdominal pain
CPT/HCPCS: 36415; 74177; 80053; 81003; 83690; 85025; 87635; 93005; 93010; 96361; 96365; 99284; C9803; J2543; Q9967

== ENCOUNTER 2023-01-21 11:13 | Day surgery (SDC) | payer MEDICARE, SELFPAY ==
--- NOTE | 2023-01-21 | PATH_ITS ---
[facility] Accession Number: [id number] No. of containers..02 Tissue . 01 Material submitted: . PART A: colon - TRANSVERSE COLON POLYP PART B: colon - RANDOM COLON BIOPSY . 01 Diagnosis: A. Transverse Colon Polyp: Hyperplastic polyp. . B. Random Colon, Biopsy: Colonic mucosa with no diagnostic abnormality. Negative for active, chronic, and microscopic colitis. Negative for dysplasia and malignancy. . MRV 01/25/2023 1405 Local . 01 Electronically signed: . Frantz Espinal MD, PhD, Pathologist NPI- [id number] . 01 Gross description: . Part A: TRANSVERSE COLON POLYP: Received in formalin is 1 fragment(s) of hassan, soft tissue measuring 0.3 x 0.3 x 0.2 cm submitted entirely in 1 cassette(s) Part B: RANDOM COLON BIOPSY: Received in formalin are 2 fragment(s) of hassan, soft tissue measuring 0.1 x 0.1 x 0.1 cm to 0.2 x 0.2 x 0.2 cm submitted entirely in 1 cassette(s) /BRYANNA 01/24/2023 0051 Local . 01 Pathologist provided ICD-10: K58.9, K63.5 . 01 CPT . 292962, 069945 Specimen Comment: A courtesy copy of this report has been sent to [phone] Performed at: 01 [facility] [address] [place] [address], [place], [place] [id number] MD Landen Borges MD Phone: [phone]
[2023-01-21 11:43] VITALS: BP 127/76; PULSE 92; RESP 16; TEMP 36.1; O2SAT 96; BMI 27.1
[2023-01-21] MEDS: LACTATED RINGERS 1,000 ML 100 ML IV (11:59)
--- NOTE | 2023-01-21 12:13 | PM.HP.1 ---
History of Present Illness History of Present Illness Date Patient Seen: 01/21/23 Time Patient Seen: 12:13 Chief complaint: SD Narrative: I reviewed Luiz Landeros's note. No significant changes. He is 2 months out from an appendectomy. COUNT INCLUDES THE [facility] Medical History Abnormal colonoscopy Surgical History H/O knee surgery H/O rotator cuff surgery History of appendectomy Hx of tonsillectomy Social History household members: friend(s) Smoking Status: Former smoker alcohol intake: current Meds Home Medications and Allergies Home Medications Medication Instructions Recorded Confirmed Type acetaminophen 325 mg tablet 650 mg PO Q6H PRN Pain (Scale 07/31/22 01/21/23 History (Tylenol) Score 4-6) alpha lipoic acid 600 mg capsule 600 mg PO BID 07/31/22 01/21/23 History ascorbic acid (vitamin C) 500 mg 500 mg PO DAILY 07/31/22 01/21/23 History tablet (Vitamin C) aspirin 81 mg capsule 81 mg PO DAILY 07/31/22 01/21/23 History atorvastatin 10 mg tablet (Lipitor) 10 mg PO DAILY 07/31/22 01/21/23 History coenzyme Q10 100 mg capsule 100 mg PO DAILY 07/31/22 01/21/23 History (CoQ-10) famotidine 20 mg tablet (Pepcid) 20 mg PO BEDTIME 07/31/22 01/21/23 History glucosamine GGh-vit-unukupmkuvk 1 tab PO DAILY 07/31/22 01/21/23 History 500 mg-300 mg-400 mg tablet latanoprost 0.005 % eye drops 2 drp ophthalmic (eye) DAILY 07/31/22 07/31/22 History magnesium 250 mg tablet 250 mg PO DAILY 07/31/22 01/21/23 History multivitamin 1 tab PO DAILY 07/31/22 01/21/23 History riboflavin (vitamin B2) 100 mg 100 mg PO DAILY 07/31/22 01/21/23 History tablet sertraline 50 mg tablet 50 mg PO DAILY 07/31/22 01/21/23 History tamsulosin 0.4 mg capsule 0.4 mg PO BEDTIME 07/31/22 01/21/23 History timolol maleate 0.5 % eye drops 0.5 drp EYE-LEFT DAILY 01/21/23 01/21/23 History Allergies Allergy/AdvReac Type Severity Reaction Status Date / Time penicillin V [PENICILLIN V] Allergy Severe RASH Verified 10/25/22 13:38 Review of Systems Review of Systems ROS: Yes All systems reviewed with the patient and are negative except as otherwise documented Exam Vital Signs (past 8 hours): - 01/21/23 11:43 Temperature 96.9 F L Pulse Rate 92 H Respiratory Rate 16 Blood Pressure 127/76 Pulse Oximetry 96 Oxygen Delivery Method Room Air Oxygen Delivery Method Room Air Const General: cooperative HENMT Head: normal to inspection Eyes General: appearance normal, both eyes and all related structures Neck Neck: normal visual inspection Chest Chest: normal inspection of the chest Resp Effort & Inspection: normal respiratory effort Cardio Rate: regular rate GI Inspection: normal to inspection Skin General: no rashes or lesions noted Neuro General: patient alert and patient awake Extrem General: normal to inspection and no pedal edema Psych Appearance: grossly normal Assessment & Plan Assessment & Plan narrative: 82-year-old male with a family history of colon cancer and chronic diarrhea. Diagnostic colonoscopy is pursued today.
--- NOTE | 2023-01-21 12:15 | PM.PREOP ---
Pre-operative Note Interval Note History & Physical reviewed/Exam performed by Physician: Yes Changes to H&P: No ASA Class (for procedural sedation): II
--- NOTE | 2023-01-21 13:32 | P.OP.COLON_ITS ---
Operative Date/Time/Diagnoses Date of procedure: 01/21/23 Time of procedure: 13:32 Pre-op diagnosis: Family history of colon cancer. Personal history of diarrhea. Post-op diagnosis: same Procedure & Clinicians Study performed: Colonoscopy with cold forceps polypectomy and random biopsies. Indications: Personal history of diarrhea family history of colon cancer Surgeon: Blue Aguilar Procedure Notes SCOAP/Timeout: Done Procedure in detail: After the risks and benefits were explained, written and verbal informed consent was obtained. The patient was brought into the procedure room and placed into the left lateral decubitus position. Please see anesthesia notes for sedation details. Digital rectal examination was accomplished. The scope was introduced into the patient and advanced under direct visualization to the cecum as identif ied by the appendiceal orifice and ileocecal valve. The scope was slowly withdrawn to carefully examine the mucosa for any defects or lesions. Comprehensive imaging was accomplished throughout the rectum including the dentate line. The colon was decompressed, the scope was then removed from the patient who tolerated the procedure well. Adult colonoscope Bowel prep adequate Scope withdrawal time: 10 minutes Sedation minutes: 17 Complications: none Impression: There was no evidence of proctitis nor colitis throughout. Random colon biopsies were taken for exclusion of microscopic colitis. The patient had some scattered diverticulosis in the left colon. In the transverse there was a diminutive 5 mm polyp removed with cold forceps. Patient had evidence of grade 2 internal hemorrhoids with hypertrophied anal papillae. Terminal ileum was interrogated and appeared visually normal. Endoscopic diagnosis 1. Diverticulosis 2. Grade 2 hemorrhoids 3. Small colon polyp Post-procedure Plan for aftercare: 1. Await histopathology. 2. Follow up GI clinic Disposition: PACU
[2023-01-21 13:33] VITALS: BP 109/70; PULSE 75; RESP 17; TEMP 36.4; O2SAT 92
[2023-01-21 13:38] VITALS: BP 106/68; PULSE 69; RESP 18; O2SAT 97
[2023-01-21 13:43] VITALS: BP 115/79; PULSE 70; RESP 24; TEMP 36.8; O2SAT 93
[2023-01-21 13:45] VITALS: BP 118/76; PULSE 66; RESP 16; O2SAT 98
[2023-01-21 14:00] VITALS: BP 131/63; PULSE 66; RESP 18; O2SAT 100
== END 2023-01-21 14:21 | disposition home or self-care (01) ==
PROVIDERS: PCP Physician Assistant; Referring Provider Internal Medicine Gastroenterology; Visit Provider Internal Medicine Gastroenterology
PROC: 0DJD8ZZ Inspection of Lower Intestinal Tract, Via Natural or Artificial Opening Endoscopic (ICD-10-PCS; CPT 45378; principal; 2023-01-21 12:30)
DX: K52.9 Noninfective gastroenteritis and colitis, unspecified (principal); Z80.0 Family history of malignant neoplasm of digestive organs; K57.30 Diverticulosis of large intestine without perforation or abscess without bleeding; K64.1 Second degree hemorrhoids; K63.5 Polyp of colon
CPT/HCPCS: 45380; J2704

== ENCOUNTER → 2023-09-24 11:09 | Outpatient (CLI) | payer MEDICARE, OTHER, SELFPAY | PROVIDERS: PCP Physician Assistant; Referring Provider Internal Medicine Cardiovascular Disease; Visit Provider Internal Medicine Cardiovascular Disease | DX: R06.02 Shortness of breath (principal); F17.210 Nicotine dependence, cigarettes, uncomplicated; J98.8 Other specified respiratory disorders | CPT/HCPCS: 94060; 94726; 94729 ==

== ENCOUNTER → 2023-10-04 12:00 | Outpatient (CLI) | payer MEDICARE, OTHER, SELFPAY ==
--- NOTE | 2023-10-04 12:06 | DI.RAD.S_ITS ---
PROCEDURE: XR CHEST 2V INDICATIONS: SHORTNESS OF BREATH TECHNIQUE: 2 views of the chest were acquired. COMPARISON: [facility], CHEST 2 VIEW, 12/28/2015, 14:26. [facility], CHEST 2 VIEW, 07/25/2009, 14:59. FINDINGS: Surgical changes and devices: None. Lungs and pleura: Lungs are clear. No pleural effusions or pneumothorax. Mediastinum: Mediastinal contours are normal. Heart size is normal. 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 IMPRESSION: No acute cardiopulmonary abnormality is seen. Dictated by: Deven Tapia M.D. on 10/04/2023 at 15:38 Approved by: Deven Tapia M.D. on 10/04/2023 at 15:39
[2023-10-04 12:48] LABS: Magnesium 2.1 mg/dL (1.6-2.3)
[2023-10-04 12:58] LABS: NT-proBNP (BNP-Adult 18+) 97 pg/mL (<450)
== END ==
PROVIDERS: PCP Physician Assistant; Referring Provider Internal Medicine Cardiovascular Disease; Visit Provider Internal Medicine Cardiovascular Disease
DX: R06.02 Shortness of breath (principal); I10 Essential (primary) hypertension
CPT/HCPCS: 36415; 71046; 83735; 83880

== ENCOUNTER → 2023-10-28 10:09 | Outpatient (CLI) | payer MEDICARE, OTHER, SELFPAY ==
--- NOTE | 2023-10-28 | DI.NM.S_ITS ---
PROCEDURE: NM DARION PERF SPECT REST & STR Rest and exercise myocardial perfusion SPECT with gated imaging and ejection fraction RADIOPHARMACEUTICAL: 11.2 mCi Tc-99m sestamibi IV at rest and 25.2 mCi Tc-99m sestamibi IV at peak exercise. A 1 day-protocol was performed. INDICATIONS: Shortness of breath PQRS ATTESTATIONS: Measure 322 - Is this imaging test primarily performed on a low-risk surgery patient for preoperative evaluation within 30 days preceding their low-risk non-cardiac surgery? Low-risk surgery is defined as cardiac or myocardial infarction less than 1%, including (but not limited to) endoscopic procedures, superficial procedures, cataract surgery, and excisional breast surgery: Answer: No Measure 323 - Is this imaging test performed primarily for the monitoring of an asymptomatic patient who had percutaneous coronary intervention on the visit date or within 2 years of the visit date? Answer: No Measure 324 - Is this imaging test performed primarily for the initial detection and risk assessment on an asymptomatic, low coronary heart disease patient? Low CHD risk definition = clinicians should consider the maximum number of available patient factors used to estimate risk based on [place] (ATP III criteria), typically age, gender, diabetes, smoking status, and use of blood pressure medication, and integrate age appropriate estimates for missing elements, such as LDL or standard blood pressure. Answer: No TECHNIQUE: Radiopharmaceutical was injected at peak stress test, and also at rest. SPECT images were obtained. SPECT myocardial perfusion images were displayed in short axis, horizontal long axis, and vertical long axis views. Gated images were reviewed using [employer] software. COMPARISON: None. CARDIAC STRESS: A standard Kartik treadmill exercise tolerance test was performed by the patient under the supervision of an attending staff. The patient exercised for 4 minutes and 30 seconds; functional aerobic impairment (JAIME) is -3 %. Hemodynamic data: There is normal blood pressure and heart rate response to exercise stress. Patient achieved 103% of maximum predicted heart rate at peak exercise. Maximum blood pressure obtained [place] 144/72[place] [address]. Maximum METS attained is 7.0. Symptoms: Patient denied chest pain during exercise. EKG: No diagnostic EKG changes of ischemia; no ectopy. FINDINGS: Raw data: There is good myocardial labeling by radiotracer. No significant motion artifacts. Lajm-le-vbpoe ratio is 0.37 (normal is less than 0.38 for sestamibi tracer, and less than 0.50 for thallium tracer). Left ventricle function: Gated images demonstrate normal left ventricle wall thickening. No segmental wall motion abnormality. No transient ischemic dilation; TID is 0.75 (normal less than 1.3). The left ventricle resting end-diastolic volume is 118 mL. Left ventricle stress ejection fraction is 70% ; normal values are above 45%. Myocardial perfusion: There was an area of mild perfusion defect in the apical segments in both the rest and stress supine images. However with prone imaging, this defect was no longer present. This indicates that the previous defect in the supine images were artifactual. No evidence of ischemia nor infarction is present. IMPRESSION: 1. Normal exercise myocardial perfusion scan. Dictated by: Jason Medrano M.D. on 10/29/2023 at 14:33 Approved by: Jason Medrano M.D. on 10/29/2023 at 14:37
== END ==
LOC: NUCM 10:10
PROVIDERS: PCP Physician Assistant; Referring Provider Internal Medicine Cardiovascular Disease; Visit Provider Internal Medicine Cardiovascular Disease
DX: R06.02 Shortness of breath (principal); I10 Essential (primary) hypertension; E78.5 Hyperlipidemia, unspecified
CPT/HCPCS: 78452; 93017; A9502

== ENCOUNTER → 2023-11-21 06:53 | Outpatient (CLI) | payer MEDICARE, OTHER, SELFPAY ==
--- NOTE | 2023-11-21 06:54 | DI.ECHO.S_ITS ---
[facility] + + Hospital +---------+ : : [address] : : : : [place], : : : : [place] [address] : : : : Phone: [phone] + [id number] Echocardiogram Report + + :Name: FRANCK JOAQUIN Study Date: 11/21/2023 Height: 73 in : :[facility] ReadingLocation: Weight: 207 lb : : Gender: Male BSA: 2.2 m2 : :: 1940 Age: 83 yrs BP: 142/67 mmHg: :Reason For Study: SHORTNESS OF BREATH : :Ordering Physician: DEANNE, : :DAYAN Performed By: Lee Ramos : :Referring: DAYAN ALICEA : + + Interpretation Summary The left ventricle is normal in size. The ejection fraction is estimated to be 50-55%. The right ventricle is mildly dilated. Right ventricular systolic function is mildly reduced. There is mild aortic regurgitation. Mild atherosclerotic plaque(s) in the aortic arch. Procedure: A two-dimensional transthoracic echocardiogram with color flow and Doppler was performed. The study quality was technically adequate. There is no prior echocardiogram noted for this patient. The patient was in sinus rhythm with heart rates between 56-75 bpm during the exam. Left Ventricle: The left ventricle is normal in size. There is mild concentric left ventricular hypertrophy. Proximal septal thickening is noted. There is no thrombus. The ejection fraction is estimated to be 50-55%. Distal inferior septal wall hypokinesis. Diastolic parameters suggest a relaxation abnormality of the left ventricle, consistent with probable normal filling pressures. Right Ventricle: The right ventricle is mildly dilated. The right ventricle is not well visualized. Right ventricular systolic function is mildly reduced. Atria: The left atrial size is normal. Right atrial size is normal. The interatrial septum grossly appears intact with no obvious evidence for an atrial septal defect. Mitral Valve: MAC. There is mild to moderate mitral annular calcification. There is no mitral valve stenosis. There is trace mitral regurgitation. Aortic Valve: The aortic valve is trileaflet. The aortic valve is mildly calcified. There is discrete nodular thickening of the left coronary cusp. There is no aortic valve stenosis. There is mild aortic regurgitation. Tricuspid Valve: The tricuspid valve is normal. There is no tricuspid stenosis. There is trace tricuspid regurgitation. Right ventricular systolic pressure is estimated to be 24.2 mmHg plus the clinically estimated CVP which cannot be estimated on this exam. Pulmonic Valve: The pulmonic valve is not well visualized. There is no pulmonic valvular stenosis. There is no pulmonic valvular regurgitation. Great Vessels: The aortic root is normal size. The dimensions of the ascending aorta are normal. Mild atherosclerotic plaque(s) in the aortic arch. The inferior vena cava was not visualized. Pericardium/ Pleura There is no pericardial effusion. There is no pleural effusion. MMode/2D Measurements & Calculations LVIDd: 4.7 cm LVOT diam: 2.2 cm LVIDs: 3.5 cm Ao root diam: 3.7 cm IVSd: 1.2 cm asc Aorta Diam: 3.7 cm LVPWd: 1.1 cm Ao Arch Diam (Prox Trans): 3.0 cm LV samuel. diameter/BSA (cm/m^2): 2.2 LV sys. diameter/BSA (cm/m^2): 1.6 FS: 26.1 % LA A2 area: 16.6 cm2 RA long axis: 4.6 cm LA A4 area: 16.2 cm2 RA area: 16.3 cm2 LA length (vol): 4.6 cm RA vol: 48.8 ml LA vol: 50.0 ml RA : 22.4 ml/m2 LA vol index: 22.9 ml/m2 RVD1 (basal): 4.1 cm RVD2 (mid): 3.5 cm Doppler Measurements & Calculations Ao V2 max: 129.5 cm/sec LVOT Max Pavel: 85.3 cm/sec Ao V2 mean: 86.6 cm/sec LV V1 max P.9 mmHg Ao V2 VTI: 27.7 cm LV V1 VTI: 18.8 cm Ao max P.7 mmHg Ao mean P.4 mmHg ANGELIA(I,D): 2.6 cm2 MV E max pavel: 44.9 cm/sec ANGELIA(V,D): 2.6 cm2 MV A max pavel: 83.5 cm/sec ANGELIA indexed to BSA (cm^2/m^2): 1.2 MV E/A: 0.54 sev ratio: 0.68 Med Peak E' Pavel: 6.3 cm/sec E/E' med: 7.2 Lat Peak E' Pavel: 8.2 cm/sec E/E' lat: 5.5 E/e' average: 6.3 MV dec time: 0.24 sec TR max pavel: 246.0 cm/sec TR max P.2 mmHg PA V2 max: 131.3 cm/sec SV(LVOT): 73.0 ml PA V2 mean: 71.4 cm/sec PA mean P.5 mmHg PA pr(Accel): 37.9 mmHg Reading Physician:04:07 PM
== END ==
PROVIDERS: PCP Physician Assistant; Referring Provider Internal Medicine Cardiovascular Disease; Visit Provider Internal Medicine Cardiovascular Disease
DX: I35.1 Nonrheumatic aortic (valve) insufficiency (principal); I70.0 Atherosclerosis of aorta; R06.02 Shortness of breath
CPT/HCPCS: 93306

== ENCOUNTER → 2024-01-10 14:35 | Outpatient (CLI) | payer MEDICARE, OTHER, SELFPAY ==
--- NOTE | 2024-01-10 14:36 | DI.CT.S_ITS ---
PROCEDURE: CT CHEST HIGH RESOLUTION INDICATIONS: Pulmonary fibrosis, unspecified TECHNIQUE: Noncontrast 1.0 and 5.0 mm thick contiguous axial sections from the pulmonary apex to the posterior costophrenic angles, with 7 mm thick coronal and sagittal MIP reformats. 1 mm thick dynamic expiratory images acquired through the upper, mid, and lower lungs. 1.0 mm thick axial sections acquired from the jey to the posterior costophrenic angles in the prone end-inspiration position. For radiation dose reduction, the following was used: automated exposure control, adjustment of mA and/or kV according to patient size. COMPARISON: None. FINDINGS: Image quality: Diagnostic. Lower Neck: No enlarged lymph nodes. Thyroid: No thyroid nodules which require sonographic follow up, per consensus guidelines. Axillae: No enlarged lymph nodes. Chest Wall: Unremarkable. Bones: Unremarkable. Lungs and Pleura: No pneumothorax or pleural effusions. Basilar predominant reticulation without subpleural sparing. No honeycombing. No ground-glass. Mild bronchial thickening and bronchiectasis. No air trapping. Heart: Heart size is enlarged. No pericardial effusion. Two vessel coronary calcifications. Thoracic Vessels: Mild dilation of the pulmonary artery. Mediastinum and Dasia: No enlarged lymph nodes. Esophagus: No wall thickening. No hiatal hernia. Upper Abdomen: Cholelithiasis without wall thickening or adjacent fat stranding to suggest acute cholecystitis. IMPRESSION: Probable UIP pattern of interstitial lung disease. Mild dilation of the pulmonary artery, suggestive of pulmonary hypertension. Dictated by: Jaswinder Hernandez M.D. on 01/10/2024 at 15:45 Approved by: Jaswinder Hernandez M.D. on 01/10/2024 at 15:48
== END ==
PROVIDERS: PCP Physician Assistant; Referring Provider Internal Medicine Critical Care Medicine; Visit Provider Internal Medicine Critical Care Medicine
DX: J84.10 Pulmonary fibrosis, unspecified (principal); I28.8 Other diseases of pulmonary vessels; I51.7 Cardiomegaly; I25.10 Atherosclerotic heart disease of native coronary artery without angina pectoris; K80.20 Calculus of gallbladder without cholecystitis without obstruction
CPT/HCPCS: 71250

== ENCOUNTER → 2024-05-09 14:56 | Outpatient (CLI) | payer MEDICARE, OTHER, SELFPAY ==
--- NOTE | 2024-05-09 14:57 | DI.MRI.S_ITS ---
PROCEDURE: MR SHOULDER LT WO CON INDICATIONS: PRIMARY OSTEOARTHRITIS TECHNIQUE: Noncontrast oblique coronal T2 fast spin echo with fat saturation, oblique sagittal T1 spin echo and T2 fast spin echo with fat saturation, axial T1 spin echo and T2 fast spin echo with fat saturation through the shoulder. COMPARISON: None. FINDINGS: Rotator cuff: Moderate diffuse increased T2 weighted signal and thickening of the mid and distal supraspinatus tendon over a span of approximately 2.4 cm consistent with moderate tendinopathy. Partial tear of the undersurface of the supraspinatus tendon over a span of 8 mm with mild increased signal and irregularity of the undersurface fibers. Moderate increased T2 weighted signal with thinning of the distal subscapularis tendon tear and associated muscular atrophy. Mild tendinopathy of the distal infraspinatus tendon with thickening and increased signal without full-thickness tear. Teres minor muscles and tendons within normal limits. Mild increased subacromial, subdeltoid bursal fluid and moderate increased subcoracoid bursal fluid. Mild to moderate glenohumeral joint effusion. Abnormal appearance of the mid to distal biceps tendon with moderate surrounding fluid, tenosynovitis, thickening and increased signal of the [id number]-[id number] biceps tendon and irregularity with thinning of the biceps anchor suspicious for partial tear versus near full thickness tear distally. Moderate degenerate changes of the glenohumeral joint with joint space narrowing and marginal osteophytes with cephalad displacement of the humeral head in relation to the glenoid likely related to the rotator cuff tears. Chronic degenerative changes of the labrum with mild signal changes increased T2 weighted signal and mild irregularity predominantly anteriorly greater than posteriorly and superiorly. Moderate degenerative changes of the acromioclavicular joint with large osteophytes, joint space narrowing, irregularity, subchondral edema. Image quality: Excellent. The exam is somewhat limited by patient motion artifact. IMPRESSION: Moderate degenerative changes of the glenohumeral and acromioclavicular joints. [id number] glenohumeral joint effusion likely related to the degenerative changes. Rotator cuff tears as discussed above. Suspected tenosynovitis and tear of the distal biceps tendon and biceps anchor. Other findings as above. Dictated by: Jefferson Swift M.D. on 05/11/2024 at 15:39 Approved by: Jefferson Swift M.D. on 05/11/2024 at 16:41
== END ==
LOC: MRI 14:57
PROVIDERS: PCP Physician Assistant; Referring Provider Orthopaedic Surgery; Visit Provider Orthopaedic Surgery
DX: M75.112 Incomplete rotator cuff tear or rupture of left shoulder, not specified as traumatic (principal); M25.412 Effusion, left shoulder; M19.019 Primary osteoarthritis, unspecified shoulder
CPT/HCPCS: 73221

== ENCOUNTER → 2024-06-04 12:35 | Outpatient (CLI) | payer MEDICARE, OTHER, SELFPAY ==
[2024-06-04 14:49] LABS: Cholesterol 100 mg/dL (140-199); HDL Cholesterol 40 mg/dL (40-60); LDL Cholesterol Calculated 42 mg/dL (<100); Triglycerides 92 mg/dL (35-150)
== END ==
LOC: LAB 12:36
PROVIDERS: PCP Physician Assistant; Referring Provider Internal Medicine Cardiovascular Disease; Visit Provider Internal Medicine Cardiovascular Disease
DX: E78.5 Hyperlipidemia, unspecified (principal)
CPT/HCPCS: 36415; 80061

== ENCOUNTER → 2024-06-19 07:14 | Outpatient (CLI) | payer MEDICARE, OTHER, SELFPAY ==
--- NOTE | 2024-06-19 07:15 | DI.US.S_ITS ---
PROCEDURE: US CAROTID DOPPLER BI INDICATIONS: FAMILY HX OF STROKE TECHNIQUE: Color and pulse Doppler interrogation was performed of both carotid systems, with image documentation and velocity measurements. COMPARISON: None. FINDINGS: Stenosis calculations are based on SRU (Society of Radiologists in Ultrasound) criteria. The flow velocities and the arterial waveforms are normal within both carotid arterial systems. Atherosclerotic plaque is seen on both sides. The estimated degree of internal carotid artery stenosis is less than 50%. Antegrade flow is confirmed within both vertebral arteries. IMPRESSION: No hemodynamically significant stenosis is seen. Atherosclerotic plaque is noted bilaterally. Dictated by: Janes Martinez M.D. on 06/19/2024 at 10:31 Approved by: Janes Martinez M.D. on 06/19/2024 at 10:32
== END ==
PROVIDERS: PCP Physician Assistant; Referring Provider Internal Medicine Cardiovascular Disease; Visit Provider Internal Medicine Cardiovascular Disease
DX: Z82.3 Family history of stroke (principal); I65.23 Occlusion and stenosis of bilateral carotid arteries
CPT/HCPCS: 93880

== ENCOUNTER 2024-10-14 14:52 | Emergency (ER) | payer MEDICARE, OTHER, SELFPAY ==
[2024-10-14] VITALS (8 sets, daily range): BP systolic 101–107; BP diastolic 53–59; PULSE 61–86; RESP 13–24; TEMP 36.4; O2SAT 95–98; BMI 27.0
--- NOTE | 2024-10-14 14:59 | DI.RAD.S_ITS ---
PROCEDURE: XR CHEST 1V INDICATIONS: chest pain TECHNIQUE: One view of the chest was acquired. COMPARISON: [facility], CR, XR CHEST 2V, 10/04/2023, 12:06. FINDINGS: Surgical changes and devices: None. Lungs and pleura: Question focal left basilar infiltrate subjacent to the left heart border. No pleural effusions or pneumothorax. Mediastinum: Mediastinal contours appear normal. Heart size is normal. Bones and chest wall: No suspicious bony lesions. Overlying soft tissues appear unremarkable. IMPRESSION: Question small focal left basilar pneumonia. Dictated by: Martir Carvalho M.D. on 10/14/2024 at 15:33 Approved by: Martir Carvalho M.D. on 10/14/2024 at 15:35
--- NOTE | 2024-10-14 15:01 | EKG_ITS ---
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
--- NOTE | 2024-10-14 15:06 | ED_ITS ---
HPI - Weakness General Chief complaint: Syncope Stated complaint: lightheaded, fall this AM, cough and fever Time Seen by Provider: 10/14/24 15:01 Source: patient Mode of arrival: Wheelchair History of Present Illness HPI Narrative: 84-year-old male with past medical history of hyperlipidemia, hypertension, glaucoma comes into the ED from home for evaluation of generalized weakness follow up. He states that he has been having a cough that he noticed yesterday states that he has also been having chills states that he feels a little bit better today but was happening over the past few days worsening last night. States he has been feeling weak secondary to this, states it is similar to when he got COVID several months ago. He states that today he was sitting in his chair attempting to stand up felt weak fell forward and fell into a magazine rack. Unsure of head strike but denies LOC denies any syncopal or presyncopal symptoms. He just states that he felt a little weak getting up. Time of evaluation patient NIH of 0 no focal deficits he has not complaining of any headache visual disturbances chest pain shortness breath fever chills nausea vomiting abdominal pain or any other GI/ symptoms at this time. Not on any blood thinners Related Data Home Medications Medication Instructions Recorded Confirmed alpha lipoic acid 600 mg capsule 600 mg PO BID 07/31/22 10/14/24 ascorbic acid (vitamin C) 500 mg 500 mg PO DAILY 07/31/22 10/14/24 tablet (Vitamin C) aspirin 81 mg capsule 81 mg PO DAILY 07/31/22 10/14/24 atorvastatin 10 mg tablet (Lipitor) 10 mg PO DAILY 07/31/22 10/14/24 coenzyme Q10 100 mg capsule 100 mg PO DAILY 07/31/22 10/14/24 (CoQ-10) famotidine 20 mg tablet (Pepcid) 20 mg PO BEDTIME 07/31/22 10/14/24 glucosamine HZr-ief-iraenwftnwo 1 tab PO DAILY 07/31/22 10/14/24 500 mg-300 mg-400 mg tablet latanoprost 0.005 % eye drops 2 drp ophthalmic (eye) DAILY 07/31/22 10/14/24 multivitamin 1 tab PO DAILY 07/31/22 10/14/24 sertraline 50 mg tablet 50 mg PO DAILY 07/31/22 10/14/24 tamsulosin 0.4 mg capsule 0.4 mg PO BEDTIME 07/31/22 10/14/24 ibuprofen 200 mg tablet 200 mg PO Q6H PRN 12/25/23 10/14/24 timolol maleate 0.5 % eye drops 0.5 drp EYE-BOTH DAILY 02/28/24 10/14/24 Previous Rx's Medication Instructions Recorded doxycycline hyclate 100 mg tablet 100 mg PO BID 7 days #14 tabs 10/14/24 Allergies Allergy/AdvReac Type Severity Reaction Status Date / Time penicillin V [PENICILLIN V] Allergy Severe RASH Verified 10/14/24 15:20 Review of Systems Review of Systems Narrative: General: Positive generalized weakness, positive chills Denies fever, weight loss HEENT: Denies headache, eye drainage, eye irritation, head trauma, sore throat, voice change Cardiovascular: Denies any chest pain, palpitations, tachycardia Respiratory: Positive cough, denies shortness of breath wheeze stridor GI/: Denies any abdominal pain, nausea, vomiting, diarrhea, bright red blood per rectum, melanotic stools, urinary frequency, urinary retention, dysuria, hematuria MSK: Denies any joint pain, muscle pains, swelling Skin: Denies any rashes, lesions, discoloration Neuro: Denies any headache, lightheadedness, dizziness, fainting, weakness Psych: Denies SI/HI Patient History Medical History Abnormal colonoscopy Surgical History History of appendectomy Hx of tonsillectomy H/O rotator cuff surgery H/O knee surgery Social History household members: friend(s) Smoking Status: Former smoker alcohol intake: current Smoking Status: Former smoker alcohol intake frequency: holidays/special occasions only Exam Narrative Exam Narrative: General: Cooperative, comfortable, well-developed, not in acute distress HEENT: Normocephalic, atraumatic, PERRLA, normal sclera, eyelids normal, Neck: Active full range of motion, atraumatic Chest: Normal to inspection, negative crepitus, no overlying erythema ecchymosis Respiratory: Normal respiratory effort, not in acute respiratory distress, clear to auscultation bilaterally negative cough, wheeze, tachypnea, rhonchi, rales Cardiology: Regular rate rhythm negative gallop, murmur, rubs GI/: Normal to inspection, soft, nonrigid, no tenderness to palpation, exam deferred MSK: Full range of active range of motion of all 4 extremities, atraumatic Skin: No rashes lesions noted Neuro: NIH of 0 no focal deficits, Alert awake oriented x3, moves all 4 extremities spontaneously, cranial nerves intact, able to answer all questions appropriately follows commands appropriately Psych: Cooperative, negative suicidal or homicidal ideations Initial Vital Signs Initial Vital Signs: Vital Signs Temperature 97.5 F L 10/14/24 14:53 Pulse Rate 86 10/14/24 14:53 Respiratory Rate 13 10/14/24 14:53 Blood Pressure 107/59 L 10/14/24 14:53 Pulse Oximetry 95 10/14/24 14:53 Oxygen Delivery Method Room Air 10/14/24 14:53 Course Orders Ordered: ED Orders 10/14/24 14:59 XR chest 1V Stat Complete Blood Count AUTO DIFF Stat Comprehensive Metabolic Panel Stat Lipase Stat Magnesium Stat NT-proBNP (BNP-Adult 18+) Stat PTT Partial Thromboplastin Yves Stat Prothrombin Time INR Stat Troponin & CK Cardiac Panel Stat EKG-12 Lead Stat 10/14/24 15:07 CT head/brain wo con Stat Covid-19 + FLU A/B + RSV - PCR Stat Sodium Chloride (Normal Saline 0.9%) 1,000 mls @ 1,000 mls/hr IV BOLUS ONE Stop: 10/14/24 16:05 Last Admin: 10/14/24 15:30 Dose: 1,000 mls/hr Vital Signs Vital signs: Vital Signs - 8 hr 10/14/24 14:53 10/14/24 14:57 10/14/24 14:58 Temperature 97.5 F L Pulse Rate 86 82 Respiratory Rate 13 Blood Pressure 107/59 L 107/59 L Pulse Oximetry 95 96 Oxygen Delivery Method Room Air 10/14/24 15:00 10/14/24 15:30 Temperature Pulse Rate 76 69 Respiratory Rate Blood Pressure Pulse Oximetry 96 95 Oxygen Delivery Method Room Air MDM - Weakness Differential Diagnosis Differential diagnosis: Likely acute myocardial infarction, dehydration and other (ACS, pneumonia, COVID, flu, RSV, urinary tract infection) Lab Data 10/14/24 15:16 10/14/24 15:16 Labs: Lab Results 10/14/24 Range/Units 15:16 WBC 9.2 (4.5-11.0) X10^3/uL RBC 3.91 L (4.5-5.9) X10^6/uL Hgb 12.8 L (13.5-17.5) g/dL Hct 37.4 L (41-53) % MCV 95.6 (80-100) fL MCH 32.7 (26-34) PG MCHC 34.2 (30-36) % RDW 13.0 (11.6-14.8) % Plt Count 221 (150-400) X10^3/uL Neut % (Auto) 77.7 H (50-75) % Lymph % (Auto) 7.4 L (25-40) % Pettis % (Auto) 14.1 H (3-14) % Eos % (Auto) 0.1 L (2-4) % Baso % (Auto) 0.7 (0-2) % Neut # (Auto) 7200 H (3826-3451) /uL Lymph # (Auto) 700 L (6379-0350) /uL Pettis # (Auto) 1300 H (0-900) /uL Eos # (Auto) 0 (0-450) /uL Baso # (Auto) 100 (0-100) /uL Imaging Data Chest x-ray: Radiologist Impression: [address] [address] XRay Report Signed Patient: Ariel Burrell MR#: [id number] : 1940 Acct:[id number] Age/Sex: 84 / M Date of Service: 10/14/24 Loc: ED Accession Number: [id number] Procedure: XR chest 1V Ordering Provider: Ben Flores D.O. PROCEDURE: XR CHEST 1V INDICATIONS: chest pain TECHNIQUE: One view of the chest was acquired. COMPARISON: [facility], , XR CHEST 2V, 10/04/2023, 12:06. FINDINGS: Surgical changes and devices: None. Lungs and pleura: Question focal left basilar infiltrate subjacent to the left heart border. No pleural effusions or pneumothorax. Mediastinum: Mediastinal contours appear normal. Heart size is normal. Bones and chest wall: No suspicious bony lesions. Overlying soft tissues appear unremarkable. IMPRESSION: Question small focal left basilar pneumonia. CT scan - head: Radiologist Impression: [address] [address] [address] Scan Report Signed Patient: Ariel Burrell MR#: [id number] : 1940 Acct:[id number] Age/Sex: 84 / M Date of Service: 10/14/24 Loc: ED Accession Number: [id number] Procedure: CT head/brain wo con Ordering Provider: Ben Flores D.O. PROCEDURE: CT HEAD/BRAIN WO CON INDICATIONS: fall TECHNIQUE: Noncontrast 4.5 mm thick angled axial sections acquired from the foramen magnum to the vertex, with coronal and sagittal reformats. For radiation dose reduction, the following was used: automated exposure control, adjustment of mA and/or kV according to patient size. COMPARISON: [facility], CR, XR CHEST 1V, 10/14/2024, 14:56. [facility], CT, CT HEAD/BRAIN WO CON, 01/01/2022, 17:51. (Additional prior imaging is not available for review from the archive at the time of this dictation.) FINDINGS: Image quality: Diagnostic. CSF spaces: Basal cisterns are patent. No extra-axial fluid collections. The ventricles are symmetric in size and shape. Brain: No intracranial bleeds or masses. There is cerebral volume loss for age, with resultant ventricular and sulcal prominence. There are periventricular and deep white matter chronic small vessel ischemic changes. There is intracranial internal carotid artery atherosclerosis. Skull and face: Calvarium and visualized facial bones appear intact, without suspicious lesions. Sinuses: Visualized sinuses and mastoids are clear. IMPRESSION: No acute intracranial hemorrhage is seen. No acute intracranial pathology. ECG Data Interpretation: EKG interpreted ED physician sinus 70 beats per minute, left axis deviation QTC 401, nonspecific ST changes no STEMI MDM Narrative Medical decision making narrative: 84-year-old male with a history of glaucoma, pulmonary fibrosis, hyperlipidemia, hypertension presents for generalized weakness cough chills. He states he has been having cough chills for the past few days worsening yesterday. He states that he has been feeling weak secondary to his symptoms. He states he felt better this morning but when he was in his chair admit to stand was feeling weak and fell forward. Unsure of head strike but denies LOC denies any syncopal or presyncopal symptoms he states that he was just feeling weak attempting to stand up from his recliner. At time of evaluation NIH of 0 no focal deficits. EKG nonischemic in nature. CT scan of the head without any acute findings. Chest x-ray showing possible pneumonia, given patient complaining of cough and chills we will treat for pneumonia. Lab work without any leukocytosis Chem panel unremarkable, troponin negative. Respiratory panel positive for influenza a, patient's symptoms more likely secondary to influenza a infection, patient with improved symptoms after fluids here. Patient not requiring supplemental oxygen, risks benefits in regards to administration of Tamiflu was made with the patient he states he does not want this at this time. Patient will be given 1st dose of antibiotics here sent home with a prescription he was given strict return precautions he verbalized understanding of this, patient with curb 65 score of 1, low risk. Discharge Plan Departure Patient Disposition: Home Clinical Impression: Pneumonia, Influenza A Instructions: DI for Pneumonia -- Adult, DI for Influenza -- Adult Activity Restrictions/Additional Instructions: Please follow up with your primary care doctor Please read the discharge instructions sheet carefully and bring all papers to all doctor follow-up visits, as it may contain information that your doctor may want to see. Disease processes change and evolve, if your symptoms worsen or if you develop any new symptoms that are concerning to you please return for evaluation. Your evaluation today does not show any evidence of any life- threatening/serious illnesses requiring admission to the hospital or surgery. Please follow-up with your doctor for re-evaluation in approximately 1 day. Seek immediate medical attention for any worrisome symptoms. *If you do not have a primary care provider please contact the [facility] Resource line at [phone]. They will ask some questions about your medical history and help get you set up with a doctor in the community. Prescriptions: New doxycycline hyclate 100 mg tablet 100 mg PO BID 7 Days Qty: 14 0RF No Action timolol maleate 0.5 % drops 0.5 drp EYE-BOTH DAILY multivitamin Tablet 1 tab PO DAILY latanoprost 0.005 % Drops 2 drp OPHTHALMIC (EYE) DAILY atorvastatin [Lipitor] 10 mg Tablet 10 mg PO DAILY famotidine [Pepcid] 20 mg Tablet 20 mg PO BEDTIME ascorbic acid (vitamin C) [Vitamin C] 500 mg Tablet 500 mg PO DAILY tamsulosin 0.4 mg Capsule 0.4 mg PO BEDTIME sertraline 50 mg Tablet 50 mg PO DAILY coenzyme Q10 [CoQ-10] 100 mg Capsule 100 mg PO DAILY glucosamine PVz-dbg-wddaozkhqm 500-300-400 mg Tablet 1 tab PO DAILY alpha lipoic acid 600 mg Capsule 600 mg PO BID aspirin 81 mg Capsule 81 mg PO DAILY ibuprofen 200 mg tablet 200 mg PO Q6H PRN Referrals: Pauline Quispe, SHERRIE [Primary Care Provider] - Stand Alone Forms: Patient Portal/API/Survey
[2024-10-14 15:29] LABS: Add Manual Diff / Slide Review NO; Basophils Absolute Auto 100 /uL (0-100); Basophils Percent Auto 0.7 % (0-2); Eosinophils Absolute Auto 0 /uL (0-450); Eosinophils Percent Auto 0.1 % (2-4); Hematocrit 37.4 % (41-53); Hemoglobin 12.8 g/dL (13.5-17.5); Lymphocytes Absolute Auto 700 /uL (1100-4500); Lymphocytes Percent Auto 7.4 % (25-40); Mean Corpuscular HGB Conc 34.2 % (30-36); Mean Corpuscular Hemoglobin 32.7 PG (26-34); Mean Corpuscular Volume 95.6 fL (80-100); Monocytes Absolute Auto 1300 /uL (0-900); Monocytes Percent Auto 14.1 % (3-14); Neutrophils Absolute Auto 7200 /uL (1500-7000); Neutrophils Percent Auto 77.7 % (50-75); Platelet Count 221 X10^3/uL (150-400); Red Blood Cell Count 3.91 X10^6/uL (4.5-5.9); White Blood Cell Count 9.2 X10^3/uL (4.5-11.0)
[2024-10-14] MEDS: SODIUM CHLORIDE 0.9% 1,000 ML 1000 ML IV (15:30)
[2024-10-14 15:35] LABS: INR 1.2 (0.9-1.3); Prothrombin Time 13.7 SECONDS (9.4-12.5)
[2024-10-14 15:38] LABS: PTT Partial Thromboplastin Tim 37 SECONDS (25.1-36.5)
[2024-10-14 15:40] LABS: Alanine Aminotransferase 43 IU/L (<50); Albumin 4.1 g/dL (3.5-5.0); Albumin Globulin Ratio 1.2 (1.0-2.8); Alkaline Phosphatase 57 U/L (38-126); Aspartate Aminotransferase 46 IU/L (17-59); BUN Creatinine Ratio 15.8 (6-22); Bilirubin Total 0.5 mg/dL (0.2-1.3); Blood Urea Nitrogen 16 mg/dL (9-20); Calcium 9.1 mg/dL (8.4-10.2); Carbon Dioxide 24 mmol/L (22-32); Chloride 100 mmol/L (98-107); Creatine Kinase 71 U/L (55-170); Estimated Glomerular Filt Rate > 60 mL/min (>60); Globulin 3.3 g/dL (1.7-4.1); Glucose 148 mg/dL (80-110); HEMOLYSIS < 15 (0-50); Lipase 47 U/L (23-300); Magnesium 1.9 mg/dL (1.6-2.3); Potassium 3.8 mmol/L (3.4-5.1); Sodium 133 mmol/L (137-145); Total Protein 7.4 g/dL (6.3-8.2)
[2024-10-14 15:51] LABS: NT-proBNP (BNP-Adult 18+) 400 pg/mL (<450); Troponin I 0.024 ng/mL (0.01-0.034)
[2024-10-14 16:18] LABS: COVID-19 CEPHEID 4-PLEX PCR Negative (Negative); Influenza A - CEPHEID Flu A POSITIVE (NEGATIVE); Influenza B - CEPHEID Flu B NEGATIVE (NEGATIVE); Respiratory Syncytial Virus Negative (Negative)
[2024-10-14] MEDS: DOXYCYCLINE HYCLATE 100 MG TABLET PO (16:47)
== END 2024-10-14 17:08 | disposition home or self-care (01) ==
PROVIDERS: Emergency Provider Student in an Organized Health Care Education/Training Program; PCP Physician Assistant
DX: J18.9 Pneumonia, unspecified organism (principal); J10.1 Influenza due to other identified influenza virus with other respiratory manifestations; S09.90XA Unspecified injury of head, initial encounter; R50.9 Fever, unspecified; R42 Dizziness and giddiness; R55 Syncope and collapse; R29.700 NIHSS score 0; Z86.16 Personal history of COVID-19; R07.9 Chest pain, unspecified
CPT/HCPCS: 0241U; 36415; 70450; 71045; 80053; 82550; 83690; 83735; 83880; 84484; 85025; 85610; 85730; 93005; 96360; 99284

== ENCOUNTER → 2024-12-02 16:06 | Outpatient (CLI) | payer MEDICARE, OTHER, SELFPAY | LOC: RESP 16:07 | PROVIDERS: PCP Physician Assistant; Referring Provider Internal Medicine Critical Care Medicine; Visit Provider Internal Medicine Critical Care Medicine | DX: J84.112 Idiopathic pulmonary fibrosis (principal); Z87.891 Personal history of nicotine dependence; R94.2 Abnormal results of pulmonary function studies | CPT/HCPCS: 94060; 94726; 94729 ==

== ENCOUNTER 2024-12-20 12:39 | Emergency (ER) | payer MEDICARE, OTHER, SELFPAY ==
[2024-12-20] VITALS (17 sets, daily range): BP systolic 110–141; BP diastolic 57–77; PULSE 92–108; RESP 14–24; TEMP 36.8; O2SAT 91–99; BMI 26.9
--- NOTE | 2024-12-20 13:07 | ED.HEATRA ---
HPI - Head Injury <Rashmi Cline PA-C - Last Filed: 12/20/24 19:49> General Chief complaint: Head Injury Stated complaint: fell hit head FRI, vomiting since last night Time Seen by Provider: 12/20/24 13:07 Source: patient Mode of arrival: Ambulatory History of Present Illness HPI Narrative: Mr. Burrell is a very pleasant 84 year old male with a past medical history of subdural about 3 years ago, idiopathic pulmonary fibrosis, MGUS who presents to the emergency department for nausea and vomiting since last night around 10:00 p.m. after having a fall on Saturday. Patient states when he was stepping up onto the curb to get into his car on Saturday he tripped on his [place] causing him to fall forward and hit his face and caused facial lacerations. States that he went to [facility] emergency department where he had imaging of his head, neck, left shoulder and left hand performed which were negative and they discharged him home. Confirmed with records. They did tell him though however that if he developed any worsening symptoms, nausea or vomiting that he should come back to the ER. Patient states he has not been in much pain except his left hand/wrist, he has 5 stitches in the left side of his forehead. However last night around 10:00 p.m. he had 4 episodes of nonbloody vomiting, this was following eating what he reports as questionable salmon around 7:00 p.m. He had 1 additional episode of vomiting this morning. He is not feeling very nauseous at this time states that he has not been drinking water in an attempt to avoid vomiting again. He is having some heartburn with his vomiting but no abdominal pain diarrhea or constipation, no dysuria but reports he does have some frequency. No difficulty with ambulation, no neck pain, no headache or visual disturbance. Related Data Home Medications Medication Instructions Recorded Confirmed alpha lipoic acid 600 mg capsule 600 mg PO BID 07/31/22 10/14/24 ascorbic acid (vitamin C) 500 mg 500 mg PO DAILY 07/31/22 10/14/24 tablet (Vitamin C) aspirin 81 mg capsule 81 mg PO DAILY 07/31/22 10/14/24 atorvastatin 10 mg tablet (Lipitor) 10 mg PO DAILY 07/31/22 10/14/24 coenzyme Q10 100 mg capsule 100 mg PO DAILY 07/31/22 10/14/24 (CoQ-10) famotidine 20 mg tablet (Pepcid) 20 mg PO BEDTIME 07/31/22 10/14/24 glucosamine [id number] 1 tab PO DAILY 07/31/22 10/14/24 500 mg-300 mg-400 mg tablet latanoprost 0.005 % eye drops 2 drp ophthalmic (eye) DAILY 07/31/22 10/14/24 multivitamin 1 tab PO DAILY 07/31/22 10/14/24 sertraline 50 mg tablet 50 mg PO DAILY 07/31/22 10/14/24 tamsulosin 0.4 mg capsule 0.4 mg PO BEDTIME 07/31/22 10/14/24 ibuprofen 200 mg tablet 200 mg PO Q6H PRN 12/25/23 10/14/24 timolol maleate 0.5 % eye drops 0.5 drp EYE-BOTH DAILY 02/28/24 10/14/24 Previous Rx's Medication Instructions Recorded ondansetron 4 mg disintegrating 4 mg PO Q8H PRN nausea and 12/20/24 tablet vomiting #14 tabs pantoprazole 20 mg tablet,delayed 20 mg PO DAILY 4 weeks #28 tabs 12/20/24 release (Protonix) Allergies Allergy/AdvReac Type Severity Reaction Status Date / Time penicillin V [PENICILLIN V] Allergy Severe RASH Verified 10/14/24 15:20 Review of Systems <Rashmi Cline PA-C - Last Filed: 12/20/24 19:49> Review of Systems ROS Unobtainable: All systems reviewed & are unremarkable except as noted in HPI and below Patient History <Rashmi Cline PA-C - Last Filed: 12/20/24 19:49> Medical History Abnormal colonoscopy Surgical History History of appendectomy Hx of tonsillectomy H/O rotator cuff surgery H/O knee surgery Social History household members: friend(s) Smoking Status: Former smoker alcohol intake: current Smoking Status: Former smoker alcohol intake frequency: holidays/special occasions only Exam <Rashmi Cline PA-C - Last Filed: 12/20/24 19:49> Narrative Exam Narrative: GENERAL: 84 year old patient appears stated age. Well-developed patient, in no acute distress. Very talkative and well-appearing. HEAD: Normocephalic. Left forehead/ facial healing abrasions. EYES: PERRL. Extraocular motions intact. No scleral icterus. No injection or drainage. ENT: Nose without bleeding, purulent drainage. Throat without erythema, tonsillar hypertrophy or exudate. Airway patent. NECK: Trachea midline. Cervical ROM intact. CARDIOVASCULAR: Mildly increased rate, high 90s low 100s during exam, regular rhythm. RESPIRATORY: Nonlabored respirations. Speaking in clear, full sentences. Clear to auscultation. Breath sounds equal bilaterally. No wheezes, rales, or rhonchi. GASTROINTESTINAL: Abdomen soft, non-tender, nondistended. Bowel sounds present. EXTREMITIES: Mild left hand edema with reported movement pain, no snuffbox tenderness. Strong radial pulses BL BACK: Nontender without deformity or crepitance. No flank tenderness. NEURO: AOx3. Clear speech. Moves all 4 extremities appropriately. No facial asymmetry. No pronator drift. Steady gait. Sensation intact to light touch throughout the upper and lower extremities. No leg drift. SKIN: Patient has laceration/healing abrasions on the left side of his forehead with a bout [address] He has some bruising and abrasions on his nasal bridge and cheek bones as well. No active bleeding. Very small bruise on the left side of the abdomen. Initial Vital Signs Initial Vital Signs: Vital Signs Pulse Rate 106 H 12/20/24 12:54 Pulse Oximetry 98 12/20/24 12:54 <Shyla Salas DO - Last Filed: 12/21/24 09:33> Initial Vital Signs Initial Vital Signs: Vital Signs Pulse Rate 106 H 12/20/24 12:54 Pulse Oximetry 98 12/20/24 12:54 Course <Rashmi Cline PA-C - Last Filed: 12/20/24 19:49> Orders Ordered: Discontinued Medications Bacitracin (Bacitracin Oint 0.9 Gm Pckt) 1 applic TOP NOW ONE Stop: 12/20/24 18:28 Last Admin: 12/20/24 18:38 Dose: 1 applic Documented By: CHIARA Sodium Chloride (Normal Saline 0.9%) 1,000 mls @ 1,000 mls/hr IV BOLUS ONE Stop: 12/20/24 14:18 Last Infusion: 12/20/24 14:41 Dose: Infused Documented By: Admin: 12/20/24 13:27 Dose: 1,000 mls/hr Documented By: CHIARA Sodium Chloride (Normal Saline 0.9%) 1,000 mls @ 1,000 mls/hr IV BOLUS ONE Stop: 12/20/24 16:38 Last Infusion: 12/20/24 16:52 Dose: Infused Documented By: Admin: 12/20/24 15:41 Dose: 1,000 mls/hr Documented By: CHIARA Acetaminophen (Ofirmev) 1,000 mg in 100 mls @ 400 mls/hr IV NOW ONE Stop: 12/20/24 17:00 Last Infusion: 12/20/24 17:53 Dose: Infused Documented By: Admin: 12/20/24 16:50 Dose: 400 mls/hr Documented By: CHIARA Ondansetron HCl (Ondansetron 4 Mg/2 Ml Inj) 4 mg IV NOW ONE Stop: 12/20/24 13:20 Last Admin: 12/20/24 13:26 Dose: 4 mg Documented By: CHIARA Ondansetron HCl (Ondansetron 4 Mg Odt Prepack) 1 bottle MISC DIRECTED ONE Stop: 12/20/24 18:28 Last Admin: 12/20/24 18:38 Dose: 1 bottle Documented By: CHIARA Oxycodone HCl (Oxycodone Ir 5 Mg Tablet) 5 mg PO NOW ONE Stop: 12/20/24 17:04 Last Admin: 12/20/24 17:39 Dose: 5 mg Documented By: PURNIMA Pantoprazole Sodium (Pantoprazole 40 Mg Vial) 40 mg IV NOW ONE Stop: 12/20/24 16:47 Last Admin: 12/20/24 16:51 Dose: 40 mg Documented By: CHIARA Vital Signs Vital signs: Vital Signs - 8 hr 12/20/24 12:54 12/20/24 12:58 12/20/24 13:00 Temperature 98.2 F Pulse Rate 106 H 108 H 103 H Respiratory Rate 18 Blood Pressure 115/63 Pulse Oximetry 98 97 98 Oxygen Delivery Method Room Air 12/20/24 13:07 12/20/24 13:07 12/20/24 13:12 Temperature Pulse Rate 101 H Respiratory Rate 17 Blood Pressure 121/65 119/66 Pulse Oximetry 99 Oxygen Delivery Method 12/20/24 13:12 12/20/24 13:30 12/20/24 13:30 Temperature Pulse Rate 104 H 108 H Respiratory Rate 20 20 Blood Pressure 126/77 Pulse Oximetry 99 98 Oxygen Delivery Method 12/20/24 14:00 12/20/24 14:26 12/20/24 14:26 Temperature Pulse Rate 103 H 103 H Respiratory Rate 24 24 Blood Pressure 126/71 Pulse Oximetry 98 94 Oxygen Delivery Method 12/20/24 14:30 12/20/24 14:30 12/20/24 15:00 Temperature Pulse Rate 101 H 98 H Respiratory Rate 24 19 Blood Pressure 125/61 Pulse Oximetry 91 96 Oxygen Delivery Method 12/20/24 15:00 12/20/24 15:30 12/20/24 15:30 Temperature Pulse Rate 101 H Respiratory Rate 20 Blood Pressure 129/59 L 132/63 Pulse Oximetry 98 Oxygen Delivery Method 12/20/24 16:00 12/20/24 16:00 12/20/24 16:30 Temperature Pulse Rate 100 H 104 H Respiratory Rate 19 15 Blood Pressure 141/65 H Pulse Oximetry 96 98 Oxygen Delivery Method 12/20/24 16:30 12/20/24 17:00 12/20/24 17:00 Temperature Pulse Rate 105 H Respiratory Rate 23 Blood Pressure 137/63 137/58 L Pulse Oximetry 97 Oxygen Delivery Method 12/20/24 17:30 12/20/24 17:30 12/20/24 18:00 Temperature Pulse Rate 106 H Respiratory Rate 14 Blood Pressure 113/57 L 115/58 L Pulse Oximetry 96 Oxygen Delivery Method 12/20/24 18:00 12/20/24 18:48 Temperature Pulse Rate 92 H 92 H Respiratory Rate 24 18 Blood Pressure 110/58 L Pulse Oximetry 96 96 Oxygen Delivery Method Room Air <Shyla Salas DO - Last Filed: 12/21/24 09:33> Orders Ordered: Discontinued Medications Bacitracin (Bacitracin Oint 0.9 Gm Pckt) 1 applic TOP NOW ONE Stop: 12/20/24 18:28 Last Admin: 12/20/24 18:38 Dose: 1 applic Documented By: CHIARA Sodium Chloride (Normal Saline 0.9%) 1,000 mls @ 1,000 mls/hr IV BOLUS ONE Stop: 12/20/24 14:18 Last Infusion: 12/20/24 14:41 Dose: Infused Documented By: Admin: 12/20/24 13:27 Dose: 1,000 mls/hr Documented By: CHIAAR Sodium Chloride (Normal Saline 0.9%) 1,000 mls @ 1,000 mls/hr IV BOLUS ONE Stop: 12/20/24 16:38 Last Infusion: 12/20/24 16:52 Dose: Infused Documented By: Admin: 12/20/24 15:41 Dose: 1,000 mls/hr Documented By: CHIARA Acetaminophen (Ofirmev) 1,000 mg in 100 mls @ 400 mls/hr IV NOW ONE Stop: 12/20/24 17:00 Last Infusion: 12/20/24 17:53 Dose: Infused Documented By: Admin: 12/20/24 16:50 Dose: 400 mls/hr Documented By: CHIARA Ondansetron HCl (Ondansetron 4 Mg/2 Ml Inj) 4 mg IV NOW ONE Stop: 12/20/24 13:20 Last Admin: 12/20/24 13:26 Dose: 4 mg Documented By: CHIARA Ondansetron HCl (Ondansetron 4 Mg Odt Prepack) 1 bottle MISC DIRECTED ONE Stop: 12/20/24 18:28 Last Admin: 12/20/24 18:38 Dose: 1 bottle Documented By: CHIARA Oxycodone HCl (Oxycodone Ir 5 Mg Tablet) 5 mg PO NOW ONE Stop: 12/20/24 17:04 Last Admin: 12/20/24 17:39 Dose: 5 mg Documented By: PURNIMA Pantoprazole Sodium (Pantoprazole 40 Mg Vial) 40 mg IV NOW ONE Stop: 12/20/24 16:47 Last Admin: 12/20/24 16:51 Dose: 40 mg Documented By: CHIARA Vital Signs Vital signs: Vital Signs - 8 hr 12/20/24 12:54 12/20/24 12:58 12/20/24 13:00 Temperature 98.2 F Pulse Rate 106 H 108 H 103 H Respiratory Rate 18 Blood Pressure 115/63 Pulse Oximetry 98 97 98 Oxygen Delivery Method Room Air 12/20/24 13:07 12/20/24 13:07 12/20/24 13:12 Temperature Pulse Rate 101 H Respiratory Rate 17 Blood Pressure 121/65 119/66 Pulse Oximetry 99 Oxygen Delivery Method 12/20/24 13:12 12/20/24 13:30 12/20/24 13:30 Temperature Pulse Rate 104 H 108 H Respiratory Rate 20 20 Blood Pressure 126/77 Pulse Oximetry 99 98 Oxygen Delivery Method 12/20/24 14:00 12/20/24 14:26 12/20/24 14:26 Temperature Pulse Rate 103 H 103 H Respiratory Rate 24 24 Blood Pressure 126/71 Pulse Oximetry 98 94 Oxygen Delivery Method 12/20/24 14:30 12/20/24 14:30 12/20/24 15:00 Temperature Pulse Rate 101 H 98 H Respiratory Rate 24 19 Blood Pressure 125/61 Pulse Oximetry 91 96 Oxygen Delivery Method 12/20/24 15:00 12/20/24 15:30 12/20/24 15:30 Temperature Pulse Rate 101 H Respiratory Rate 20 Blood Pressure 129/59 L 132/63 Pulse Oximetry 98 Oxygen Delivery Method 12/20/24 16:00 12/20/24 16:00 12/20/24 16:30 Temperature Pulse Rate 100 H 104 H Respiratory Rate 19 15 Blood Pressure 141/65 H Pulse Oximetry 96 98 Oxygen Delivery Method 12/20/24 16:30 12/20/24 17:00 12/20/24 17:00 Temperature Pulse Rate 105 H Respiratory Rate 23 Blood Pressure 137/63 137/58 L Pulse Oximetry 97 Oxygen Delivery Method 12/20/24 17:30 12/20/24 17:30 12/20/24 18:00 Temperature Pulse Rate 106 H Respiratory Rate 14 Blood Pressure 113/57 L 115/58 L Pulse Oximetry 96 Oxygen Delivery Method 12/20/24 18:00 12/20/24 18:48 Temperature Pulse Rate 92 H 92 H Respiratory Rate 24 18 Blood Pressure 110/58 L Pulse Oximetry 96 96 Oxygen Delivery Method Room Air MDM - Head Injury <Rashmi Cline PA-C - Last Filed: 12/20/24 19:49> Medical Records Attestation: I reviewed the patient's medical records. Medical records narrative: Reviewed prior ED notes, acute appendicitis 10/25/2022, influenza a 10/14/2024. Lab Data 12/20/24 15:18 12/20/24 13:03 Labs: Lab Results 12/20/24 12/20/24 12/20/24 Range/Units 13:03 13:29 14:05 WBC 9.3 (4.5-11.0) X10^3/uL RBC 3.80 L (4.5-5.9) X10^6/uL Hgb 12.4 L (13.5-17.5) g/dL Hct 37.0 L (41-53) % MCV 97.4 (80-100) fL MCH 32.6 (26-34) PG MCHC 33.5 (30-36) % RDW 13.2 (11.6-14.8) % Plt Count 62 L (150-400) X10^3/uL Neut % (Auto) 89.3 H (50-75) % Lymph % (Auto) 5.3 L (25-40) % [place] % (Auto) 4.6 (3-14) % Eos % (Auto) 0.4 L (2-4) % Baso % (Auto) 0.4 (0-2) % Neut # (Auto) 8300 H (4294-2213) /uL Lymph # (Auto) 500 L (8585-3991) /uL [place] # (Auto) 400 (0-900) /uL Eos # (Auto) 0 (0-450) /uL Baso # (Auto) 0 (0-100) /uL PT 13.3 H (9.4-12.5) SECONDS INR 1.2 (0.9-1.3) APTT 36 (25.1-36.5) SECONDS Sodium 139 (137-145) mmol/L Potassium 4.1 (3.4-5.1) mmol/L Chloride 100 (98-107) mmol/L Carbon Dioxide 26 (22-32) mmol/L BUN 16 (9-20) mg/dL Creatinine 0.86 (0.66-1.25) mg/dL Estimated GFR > 60 (>60) mL/min BUN/Creatinine Ratio 18.6 (6-22) Glucose 140 H (70-99) mg/dL Lactate 3.5 H (0.7-2.1) mmol/L Calcium 9.5 (8.4-10.2) mg/dL Total Bilirubin 1.3 (0.2-1.3) mg/dL AST 55 (17-59) IU/L ALT 56 H (<50) IU/L Alkaline Phosphatase 64 (38-126) U/L Total Creatine Kinase 39 L (55-170) U/L Troponin I 0.022 (0.01-0.034) ng/mL Total Protein 8.3 H (6.3-8.2) g/dL Albumin 4.7 (3.5-5.0) g/dL Globulin 3.6 (1.7-4.1) g/dL Albumin/Globulin Ratio 1.3 (1.0-2.8) Lipase 39 (23-300) U/L Ur Bilirubin Confirm (Negative) Urine RBC (0-5/HPF) Urine WBC (0-5/HPF) Ur Squamous Epith Cells (0-5/HPF) Urine Bacteria (None) Ur Culture Indicated? Vol Urine Centrifuged SARS-CoV-2 (PCR) Negative (Negative) Influenza A (RT-PCR) Flu a negative (NEGATIVE) Influenza B (RT-PCR) Flu b negative (NEGATIVE) RSV (PCR) Negative (Negative) 12/20/24 12/20/24 12/20/24 Range/Units 15:10 15:18 15:25 WBC 11.7 H (4.5-11.0) X10^3/uL RBC 4.19 L (4.5-5.9) X10^6/uL Hgb 13.5 (13.5-17.5) g/dL Hct 40.8 L (41-53) % MCV 97.4 (80-100) fL MCH 32.2 (26-34) PG MCHC 33.0 (30-36) % RDW 13.6 (11.6-14.8) % Plt Count 218 (150-400) X10^3/uL Neut % (Auto) 89.0 H (50-75) % Lymph % (Auto) 4.3 L (25-40) % [place] % (Auto) 6.4 (3-14) % Eos % (Auto) 0.0 L (2-4) % Baso % (Auto) 0.3 (0-2) % Neut # (Auto) 74527 H (9901-9856) /uL Lymph # (Auto) 500 L (7262-6205) /uL [place] # (Auto) 700 (0-900) /uL Eos # (Auto) 0 (0-450) /uL Baso # (Auto) 0 (0-100) /uL PT (9.4-12.5) SECONDS INR (0.9-1.3) APTT (25.1-36.5) SECONDS Sodium (137-145) mmol/L Potassium (3.4-5.1) mmol/L Chloride (98-107) mmol/L Carbon Dioxide (22-32) mmol/L BUN (9-20) mg/dL Creatinine (0.66-1.25) mg/dL Estimated GFR (>60) mL/min BUN/Creatinine Ratio (6-22) Glucose (70-99) mg/dL Lactate 3.2 H (0.7-2.1) mmol/L Calcium (8.4-10.2) mg/dL Total Bilirubin (0.2-1.3) mg/dL AST (17-59) IU/L ALT (<50) IU/L Alkaline Phosphatase (38-126) U/L Total Creatine Kinase (55-170) U/L Troponin I 0.022 (0.01-0.034) ng/mL Total Protein (6.3-8.2) g/dL Albumin (3.5-5.0) g/dL Globulin (1.7-4.1) g/dL Albumin/Globulin Ratio (1.0-2.8) Lipase (23-300) U/L Ur Bilirubin Confirm Negative (Negative) Urine RBC None seen (0-5/HPF) Urine WBC 0-1/hpf (0-5/HPF) Ur Squamous Epith Cells None seen (0-5/HPF) Urine Bacteria Occasional (0-1) (None) Ur Culture Indicated? Cult not indicated Vol Urine Centrifuged 10ml (spun) SARS-CoV-2 (PCR) (Negative) Influenza A (RT-PCR) (NEGATIVE) Influenza B (RT-PCR) (NEGATIVE) RSV (PCR) (Negative) 12/20/24 Range/Units 18:01 WBC (4.5-11.0) X10^3/uL RBC (4.5-5.9) X10^6/uL Hgb (13.5-17.5) g/dL Hct (41-53) % MCV (80-100) fL MCH (26-34) PG MCHC (30-36) % RDW (11.6-14.8) % Plt Count (150-400) X10^3/uL Neut % (Auto) (50-75) % Lymph % (Auto) (25-40) % [place] % (Auto) (3-14) % Eos % (Auto) (2-4) % Baso % (Auto) (0-2) % Neut # (Auto) (8663-5537) /uL Lymph # (Auto) (3709-6921) /uL [place] # (Auto) (0-900) /uL Eos # (Auto) (0-450) /uL Baso # (Auto) (0-100) /uL PT (9.4-12.5) SECONDS INR (0.9-1.3) APTT (25.1-36.5) SECONDS Sodium (137-145) mmol/L Potassium (3.4-5.1) mmol/L Chloride (98-107) mmol/L Carbon Dioxide (22-32) mmol/L BUN (9-20) mg/dL Creatinine (0.66-1.25) mg/dL Estimated GFR (>60) mL/min BUN/Creatinine Ratio (6-22) Glucose (70-99) mg/dL Lactate 1.8 (0.7-2.1) mmol/L Calcium (8.4-10.2) mg/dL Total Bilirubin (0.2-1.3) mg/dL AST (17-59) IU/L ALT (<50) IU/L Alkaline Phosphatase (38-126) U/L Total Creatine Kinase (55-170) U/L Troponin I (0.01-0.034) ng/mL Total Protein (6.3-8.2) g/dL Albumin (3.5-5.0) g/dL Globulin (1.7-4.1) g/dL Albumin/Globulin Ratio (1.0-2.8) Lipase (23-300) U/L Ur Bilirubin Confirm (Negative) Urine RBC (0-5/HPF) Urine WBC (0-5/HPF) Ur Squamous Epith Cells (0-5/HPF) Urine Bacteria (None) Ur Culture Indicated? Vol Urine Centrifuged SARS-CoV-2 (PCR) (Negative) Influenza A (RT-PCR) (NEGATIVE) Influenza B (RT-PCR) (NEGATIVE) RSV (PCR) (Negative) Urine Dip Bedside Urine Glucose Negative Bedside Urine Bilirubin + 1 Bedside Urine Ketone - Negative Urine Specific [place] 1.010 Bedside Urine Occult Blood - Negative Bedside Urine pH 6.0 Bedside Urine Protein +/- 15 Bedside Urine Urobilinogen - Negative Bedside Urine Nitrite - Negative Bedside Urine Leukocytes - Negative Esterase Imaging Data CT scan - head: Radiologist's Impression: PROCEDURE: CT HEAD/BRAIN WO CON INDICATIONS: fall fri; vomiting last night; hx subdural TECHNIQUE: Noncontrast 4.5 mm thick angled axial sections acquired from the foramen magnum to the vertex, with coronal and sagittal reformats. For radiation dose reduction, the following was used: automated exposure control, adjustment of mA and/or kV according to patient size. COMPARISON: [facility], CR, XR CHEST 1V, 12/20/2024, 13:16. [facility], CT, CT HEAD/BRAIN WO CON, 10/14/2024, 15:11. FINDINGS: Image quality: Diagnostic. CSF spaces: Basal cisterns are patent. No extra-axial fluid collections. The ventricles are symmetric in size and shape. Brain: No intracranial bleeds or mass effect. There is cerebral volume loss, with resultant ventricular and sulcal prominence. There are periventricular and deep white matter chronic small vessel ischemic changes. There is intracranial internal carotid artery atherosclerosis. Skull and face: Focal soft tissue swelling can be seen involving the left forehead. No associated calvarial fracture can be seen. Calvarium and visualized facial bones appear intact, without suspicious lesions. Sinuses: Visualized sinuses and mastoids are clear. IMPRESSION: Left forehead soft tissue swelling, without an associated fracture. No acute intracranial hemorrhage is seen. No acute intracranial process is seen. Dictated by: Janes Martinez M.D. on 12/20/2024 at 12:52 Approved by: Janes Martinez M.D. on 12/20/2024 at 12:54 CT scan - abdomen/pelvis: Radiologist's Impression: PROCEDURE: CT ABDOMEN PELVIS W CON INDICATIONS: vomiting acid reflux fall TECHNIQUE: After the administration of intravenous contrast, axial sections acquired from the lung bases to the pubic symphysis. Coronal and sagittal reformats were performed. For radiation dose reduction, the following was used: automated exposure control, adjustment of mA and/or kV according to patient size. COMPARISON: [facility], CT, CT HEAD/BRAIN WO CON, 12/20/2024, 13:44. [facility], CT, CT ABDOMEN PELVIS W CON, 10/25/2022, 14:34. FINDINGS: Image quality: Diagnostic. Lower Chest: Moderate coronary artery calcification is seen. A small hiatal hernia is incidentally noted. ABDOMEN: Liver: No solid mass. Gallbladder: Layering gallstones are seen. No additional CT findings of cholecystitis are seen. Biliary ducts: No biliary dilation. Pancreas: No ductal dilation. Spleen: Size is within normal limits. Adrenal Glands: No adrenal nodules. Kidneys and Ureters: No hydronephrosis. No solid mass. No complex renal cystic lesion which requires follow up. Stomach and Bowel: The stomach is moderately distended with fluid. Normal colonic caliber, without significant wall thickening. Colonic diverticulosis is seen, without findings of active diverticulitis. No dilated loops of small bowel are seen. Prior appendectomy Peritoneum: No abnormal intraperitoneal fluid. No free air. Ventral Wall: No significant ventral hernia. Abdominal Nodes: No retroperitoneal or mesenteric adenopathy by size criteria. Vessels: Aorta and inferior vena cava are normal in size. Atherosclerotic calcification is noted. PELVIS: Pelvic Organs: Unremarkable. Bladder: No bladder wall thickening, accounting for underdistention. Pelvic Nodes: No enlarged lymph nodes. Miscellaneous: There is a mild fat containing right inguinal hernia. Bones: No aggressive osseous abnormality. Age-appropriate bony degenerative changes are seen. IMPRESSION: The stomach is moderately distended with fluid. No significant small bowel abnormality is seen. No acute posttraumatic abnormality is seen. Colonic diverticulosis is seen, without findings of active diverticulitis. Additional findings: Moderate coronary artery calcification Small hiatal hernia Layering gallstones Appendectomy Mild fat containing right inguinal hernia Dictated by: Janes Martinez M.D. on 12/20/2024 at 13:39 Approved by: Janes Martinez M.D. on 12/20/2024 at 13:42 Chest x-ray: Radiologist's Impression: PROCEDURE: XR CHEST 1V INDICATIONS: vomiting; fall Saturday TECHNIQUE: One view of the chest was acquired. COMPARISON: [facility], CR, XR CHEST 1 VIEW, 12/18/2024, 15:06. [facility], CR, XR CHEST 1V, 10/14/2024, 14:56. FINDINGS: Surgical changes and devices: None. Lungs and pleura: An incomplete inspiratory result is noted, causing a crowded appearance to the lung markings. No focal infiltrates are seen. No pneumothorax or significant pleural effusions are seen. Mediastinum: The cardiac contours are within normal limits. The aorta demonstrates calcification and tortuosity. Bones and chest wall: Is no displaced rib fracture is seen on this single view study. No suspicious bony lesions. Overlying soft tissues appear unremarkable. IMPRESSION: Low lung volumes, without an acute abnormality seen by plain film. If there is strong clinical concern for chest trauma in this patient, please consider a follow-up chest CT with IV contrast for further evaluation. Dictated by: Janes Martinez M.D. on 12/20/2024 at 12:44 Approved by: Janes Martinez M.D. on 12/20/2024 at 12:45 ECG Data Interpretation: ECG reveals a rate of 102 and irregular rhythm. QTC 422. Compared to ECG from 10/14/2024 which reveals increase in rate. MDM Narrative Medical decision making narrative: 84 year old male with a past medical history of subdural about 3 years ago, idiopathic pulmonary fibrosis, MGUS who presents to the emergency department for nausea and vomiting since last night around 10:00 p.m. after having a fall on Saturday. Differential diagnosis includes but is not limited to gastroenteritis, food-borne illness, dehydration, electrolyte abnormality, delayed intracerebral hemorrhage, closed head injury, concussion, infection/UTI, CLAIRE, etc. On exam patient is in no acute distress, nontoxic-appearing, all vital signs within normal limits except for mildly elevated heart rate. He has some healing facial wounds from his fall on Saturday, records requested from prior ER visit. He has no focal neurologic deficits and is able to provide clear full history. Concern vomiting is related to head injury versus completely separate cause. We will repeat head CT, check labs including EKG troponin given patient's heartburn with vomiting. We will treat with fluids. Workup reveals elevated lactic acid of 3.5. Initial CBC revealed significant thrombocytopenia however a repeat CBC was ordered revealing normal platelets 218. white blood cell count is slightly elevated at 11.7 with left shift. Normal sodium 139, potassium 4.1, renal function 16 BUN and creatinine of 0.86. Glucose 140. AST 55, ALT 56, initial troponin is 0.022 which is down from about 2 months ago. UA negative for infection. Due to elevated lactate and nausea/vomiting, a CT AP was added revealing the stomach is moderately distended with fluid. No significant small bowel abnormality is seen. No acute posttraumatic abnormality seen. Colonic diverticulosis is seen without findings of active diverticulitis. Patient also has moderate coronary artery calcifications, small hiatal hernia, layering gallstones with no secondary signs of cholecystitis, prior appendectomy and mild fat containing right inguinal hernia. Head CT reveals left forehead soft tissue swelling without an associated fracture, no acute intracranial hemorrhage, no acute intracranial process. Chest x-ray reveals low lung volumes, without acute abnormality seen by plain film. All imaging results were printed and discussed with the patient, provided his own copies. Repeat lactate after 1 L of IV fluids was 3.2, second L added. Repeat troponin stable, no chest pain or shortness of breath at any point. Patient overall reports feeling well, no abdominal tenderness on subsequent exams, he does report having continued acid reflux. At this time concerned that his symptoms and abnormal workup are more related to possible gastroenteritis gastritis rather than his prior head trauma. Patient also received IV Tylenol and IV Protonix which improved his symptoms, his heart rate returned to the 80s, and his 3rd lactate decreased appropriately 1.8. He is tolerating p.o. and feels well, serial abdominal exam is soft nontender and benign. Discussed with the patient that at this time I suspect his symptoms are less likely related to his fall and more likely related to a possible gastroenteritis. However we did discuss very strict ED return precautions for both head trauma/ concussion in addition to possible bowel obstruction or other abdominal abnormality. Patient verbalized understanding of all strict ED return precautions, is tolerating p.o., abdomen is soft and nontender, stable for discharge home. He was given a prepack of Zofran and I sent Zofran and Protonix was pharmacy. <Shyla Salas, DO - Last Filed: 12/21/24 09:33> Lab Data Labs: Lab Results 12/20/24 12/20/24 12/20/24 Range/Units 13:03 13:29 14:05 WBC 9.3 (4.5-11.0) X10^3/uL RBC 3.80 L (4.5-5.9) X10^6/uL Hgb 12.4 L (13.5-17.5) g/dL Hct 37.0 L (41-53) % MCV 97.4 (80-100) fL MCH 32.6 (26-34) PG MCHC 33.5 (30-36) % RDW 13.2 (11.6-14.8) % Plt Count 62 L (150-400) X10^3/uL Neut % (Auto) 89.3 H (50-75) % Lymph % (Auto) 5.3 L (25-40) % [place] % (Auto) 4.6 (3-14) % Eos % (Auto) 0.4 L (2-4) % Baso % (Auto) 0.4 (0-2) % Neut # (Auto) 8300 H (9126-6463) /uL Lymph # (Auto) 500 L (8284-4968) /uL [place] # (Auto) 400 (0-900) /uL Eos # (Auto) 0 (0-450) /uL Baso # (Auto) 0 (0-100) /uL PT 13.3 H (9.4-12.5) SECONDS INR 1.2 (0.9-1.3) APTT 36 (25.1-36.5) SECONDS Sodium 139 (137-145) mmol/L Potassium 4.1 (3.4-5.1) mmol/L Chloride 100 (98-107) mmol/L Carbon Dioxide 26 (22-32) mmol/L BUN 16 (9-20) mg/dL Creatinine 0.86 (0.66-1.25) mg/dL Estimated GFR > 60 (>60) mL/min BUN/Creatinine Ratio 18.6 (6-22) Glucose 140 H (70-99) mg/dL Lactate 3.5 H (0.7-2.1) mmol/L Calcium 9.5 (8.4-10.2) mg/dL Total Bilirubin 1.3 (0.2-1.3) mg/dL AST 55 (17-59) IU/L ALT 56 H (<50) IU/L Alkaline Phosphatase 64 (38-126) U/L Total Creatine Kinase 39 L (55-170) U/L Troponin I 0.022 (0.01-0.034) ng/mL Total Protein 8.3 H (6.3-8.2) g/dL Albumin 4.7 (3.5-5.0) g/dL Globulin 3.6 (1.7-4.1) g/dL Albumin/Globulin Ratio 1.3 (1.0-2.8) Lipase 39 (23-300) U/L Ur Bilirubin Confirm (Negative) Urine RBC (0-5/HPF) Urine WBC (0-5/HPF) Ur Squamous Epith Cells (0-5/HPF) Urine Bacteria (None) Ur Culture Indicated? Vol Urine Centrifuged SARS-CoV-2 (PCR) Negative (Negative) Influenza A (RT-PCR) Flu a negative (NEGATIVE) Influenza B (RT-PCR) Flu b negative (NEGATIVE) RSV (PCR) Negative (Negative) 12/20/24 12/20/24 12/20/24 Range/Units 15:10 15:18 15:25 WBC 11.7 H (4.5-11.0) X10^3/uL RBC 4.19 L (4.5-5.9) X10^6/uL Hgb 13.5 (13.5-17.5) g/dL Hct 40.8 L (41-53) % MCV 97.4 (80-100) fL MCH 32.2 (26-34) PG MCHC 33.0 (30-36) % RDW 13.6 (11.6-14.8) % Plt Count 218 (150-400) X10^3/uL Neut % (Auto) 89.0 H (50-75) % Lymph % (Auto) 4.3 L (25-40) % [place] % (Auto) 6.4 (3-14) % Eos % (Auto) 0.0 L (2-4) % Baso % (Auto) 0.3 (0-2) % Neut # (Auto) 08411 H (4167-5661) /uL Lymph # (Auto) 500 L (9427-3639) /uL [place] # (Auto) 700 (0-900) /uL Eos # (Auto) 0 (0-450) /uL Baso # (Auto) 0 (0-100) /uL PT (9.4-12.5) SECONDS INR (0.9-1.3) APTT (25.1-36.5) SECONDS Sodium (137-145) mmol/L Potassium (3.4-5.1) mmol/L Chloride (98-107) mmol/L Carbon Dioxide (22-32) mmol/L BUN (9-20) mg/dL Creatinine (0.66-1.25) mg/dL Estimated GFR (>60) mL/min BUN/Creatinine Ratio (6-22) Glucose (70-99) mg/dL Lactate 3.2 H (0.7-2.1) mmol/L Calcium (8.4-10.2) mg/dL Total Bilirubin (0.2-1.3) mg/dL AST (17-59) IU/L ALT (<50) IU/L Alkaline Phosphatase (38-126) U/L Total Creatine Kinase (55-170) U/L Troponin I 0.022 (0.01-0.034) ng/mL Total Protein (6.3-8.2) g/dL Albumin (3.5-5.0) g/dL Globulin (1.7-4.1) g/dL Albumin/Globulin Ratio (1.0-2.8) Lipase (23-300) U/L Ur Bilirubin Confirm Negative (Negative) Urine RBC None seen (0-5/HPF) Urine WBC 0-1/hpf (0-5/HPF) Ur Squamous Epith Cells None seen (0-5/HPF) Urine Bacteria Occasional (0-1) (None) Ur Culture Indicated? Cult not indicated Vol Urine Centrifuged 10ml (spun) SARS-CoV-2 (PCR) (Negative) Influenza A (RT-PCR) (NEGATIVE) Influenza B (RT-PCR) (NEGATIVE) RSV (PCR) (Negative) 12/20/24 Range/Units 18:01 WBC (4.5-11.0) X10^3/uL RBC (4.5-5.9) X10^6/uL Hgb (13.5-17.5) g/dL Hct (41-53) % MCV (80-100) fL MCH (26-34) PG MCHC (30-36) % RDW (11.6-14.8) % Plt Count (150-400) X10^3/uL Neut % (Auto) (50-75) % Lymph % (Auto) (25-40) % [place] % (Auto) (3-14) % Eos % (Auto) (2-4) % Baso % (Auto) (0-2) % Neut # (Auto) (2279-6537) /uL Lymph # (Auto) (4708-0346) /uL [place] # (Auto) (0-900) /uL Eos # (Auto) (0-450) /uL Baso # (Auto) (0-100) /uL PT (9.4-12.5) SECONDS INR (0.9-1.3) APTT (25.1-36.5) SECONDS Sodium (137-145) mmol/L Potassium (3.4-5.1) mmol/L Chloride (98-107) mmol/L Carbon Dioxide (22-32) mmol/L BUN (9-20) mg/dL Creatinine (0.66-1.25) mg/dL Estimated GFR (>60) mL/min BUN/Creatinine Ratio (6-22) Glucose (70-99) mg/dL Lactate 1.8 (0.7-2.1) mmol/L Calcium (8.4-10.2) mg/dL Total Bilirubin (0.2-1.3) mg/dL AST (17-59) IU/L ALT (<50) IU/L Alkaline Phosphatase (38-126) U/L Total Creatine Kinase (55-170) U/L Troponin I (0.01-0.034) ng/mL Total Protein (6.3-8.2) g/dL Albumin (3.5-5.0) g/dL Globulin (1.7-4.1) g/dL Albumin/Globulin Ratio (1.0-2.8) Lipase (23-300) U/L Ur Bilirubin Confirm (Negative) Urine RBC (0-5/HPF) Urine WBC (0-5/HPF) Ur Squamous Epith Cells (0-5/HPF) Urine Bacteria (None) Ur Culture Indicated? Vol Urine Centrifuged SARS-CoV-2 (PCR) (Negative) Influenza A (RT-PCR) (NEGATIVE) Influenza B (RT-PCR) (NEGATIVE) RSV (PCR) (Negative) Urine Dip Bedside Urine Glucose Negative Bedside Urine Bilirubin + 1 Bedside Urine Ketone - Negative Urine Specific [place] 1.010 Bedside Urine Occult Blood - Negative Bedside Urine pH 6.0 Bedside Urine Protein +/- 15 Bedside Urine Urobilinogen - Negative Bedside Urine Nitrite - Negative Bedside Urine Leukocytes - Negative Esterase Discharge Plan Departure Patient Disposition: Home Clinical Impression: Fall Qualifiers: Encounter type: subsequent encounter Qualified Code(s): W19.XXXD - Unspecified fall, subsequent encounter Nausea & vomiting Qualifiers: Vomiting type: unspecified Qualified Code(s): R11.2 - Nausea with vomiting, unspecified Instructions: Nausea and Vomiting-Adult Activity Restrictions/Additional Instructions: Dear Mr. Burrell, Thank you for coming to the emergency department. Today you were evaluated for nausea and vomiting. We repeated a CT scan of your head which did not show any bleeds or abnormalities. We performed a CT scan of your abdomen and pelvis which did show the stomach was filled with fluid however there was no signs of obstruction or infection on your imaging. Your lab work did reveal signs of dehydration and you were treated with IV fluids. Your lab work improved. At this time I believe your symptoms are more related to gastroenteritis rather than your fall on Saturday. Please use the prescribed medication for nausea and the daily medication for acid reflux. Please return to the emergency department immediately if you develop abdominal pain, worsening vomiting, severe head pain, fevers or any other concerns. Please follow up with your primary care doctor within the next 2-3 days for ER follow-up. (If you do not have a PCP you can call [phone]. to schedule an appointment with an [facility] Primary Care Provider) IF YOU DEVELOP ANY NEW OR WORSENING SYMPTOMS, RETURN TO THE ER! Please read the attached instructions, they highlight more specific treatments and interventions for you at home. Thank you for letting me participate in your care, Rashmi Cline PA-C Prescriptions: New pantoprazole [Protonix] 20 mg tablet,delayed release (DR/EC) 20 mg PO DAILY 28 Days Qty: 28 0RF ondansetron 4 mg tablet,disintegrating 4 mg PO Q8H PRN (Reason: nausea and vomiting) Qty: 14 0RF No Action timolol maleate 0.5 % drops 0.5 drp EYE-BOTH DAILY multivitamin Tablet 1 tab PO DAILY latanoprost 0.005 % Drops 2 drp OPHTHALMIC (EYE) DAILY atorvastatin [Lipitor] 10 mg Tablet 10 mg PO DAILY famotidine [Pepcid] 20 mg Tablet 20 mg PO BEDTIME ascorbic acid (vitamin C) [Vitamin C] 500 mg Tablet 500 mg PO DAILY tamsulosin 0.4 mg Capsule 0.4 mg PO BEDTIME sertraline 50 mg Tablet 50 mg PO DAILY coenzyme Q10 [CoQ-10] 100 mg Capsule 100 mg PO DAILY glucosamine [id number]-[id number] 500-300-400 mg Tablet 1 tab PO DAILY alpha lipoic acid 600 mg Capsule 600 mg PO BID aspirin 81 mg Capsule 81 mg PO DAILY ibuprofen 200 mg tablet 200 mg PO Q6H PRN Referrals: Pauline Quispe PA-C [Primary Care Provider] - Stand Alone Forms: Patient Portal/API/Survey ED Sign-out <Shyla Salas DO - Last Filed: 12/21/24 09:33> Cosign ED Attending Cosignature Attestation: I saw and evaluated patient myself. It 84-year-old male who had some bad food and vomited a couple of times. He was noted to be slightly tachycardic heart rate low 100s never higher than 108. Does have elevated lactate of 3.5, which trended down to 3.2 and eventually 1.8. You received IV fluids and Tylenol. Abdomen soft nontender overall appears well nontoxic. CT did not show any kind of obstruction or abnormality. He was no leukocytosis. Pain is not out of proportion no concern for ischemia. He is tolerating p.o. fluids overall appears well. The like he was able to go home. I was available for consultation.
--- NOTE | 2024-12-20 13:19 | DI.CT.S_ITS ---
PROCEDURE: CT HEAD/BRAIN WO CON INDICATIONS: fall fri; vomiting last night; hx subdural TECHNIQUE: Noncontrast 4.5 mm thick angled axial sections acquired from the foramen magnum to the vertex, with coronal and sagittal reformats. For radiation dose reduction, the following was used: automated exposure control, adjustment of mA and/or kV according to patient size. COMPARISON: [facility], CR, XR CHEST 1V, 12/20/2024, 13:16. [facility], CT, CT HEAD/BRAIN WO CON, 10/14/2024, 15:11. FINDINGS: Image quality: Diagnostic. CSF spaces: Basal cisterns are patent. No extra-axial fluid collections. The ventricles are symmetric in size and shape. Brain: No intracranial bleeds or mass effect. There is cerebral volume loss, with resultant ventricular and sulcal prominence. There are periventricular and deep white matter chronic small vessel ischemic changes. There is intracranial internal carotid artery atherosclerosis. Skull and face: Focal soft tissue swelling can be seen involving the left forehead. No associated calvarial fracture can be seen. Calvarium and visualized facial bones appear intact, without suspicious lesions. Sinuses: Visualized sinuses and mastoids are clear. IMPRESSION: Left forehead soft tissue swelling, without an associated fracture. No acute intracranial hemorrhage is seen. No acute intracranial process is seen. Dictated by: Janes Martinez M.D. on 12/20/2024 at 12:52 Approved by: Janes Martinez M.D. on 12/20/2024 at 12:54
--- NOTE | 2024-12-20 13:19 | DI.RAD.S_ITS ---
PROCEDURE: XR CHEST 1V INDICATIONS: vomiting; fall Saturday TECHNIQUE: One view of the chest was acquired. COMPARISON: [facility], CR, XR CHEST 1 VIEW, 12/18/2024, 15:06. [facility], CR, XR CHEST 1V, 10/14/2024, 14:56. FINDINGS: Surgical changes and devices: None. Lungs and pleura: An incomplete inspiratory result is noted, causing a crowded appearance to the lung markings. No focal infiltrates are seen. No pneumothorax or significant pleural effusions are seen. Mediastinum: The cardiac contours are within normal limits. The aorta demonstrates calcification and tortuosity. Bones and chest wall: Is no displaced rib fracture is seen on this single view study. No suspicious bony lesions. Overlying soft tissues appear unremarkable. IMPRESSION: Low lung volumes, without an acute abnormality seen by plain film. If there is strong clinical concern for chest trauma in this patient, please consider a follow-up chest CT with IV contrast for further evaluation. Dictated by: Janes Martinez M.D. on 12/20/2024 at 12:44 Approved by: Janes Martinez M.D. on 12/20/2024 at 12:45
[2024-12-20] MEDS: ONDANSETRON 4 MG/2 ML INJ IV (13:26)
[2024-12-20] MEDS: SODIUM CHLORIDE 0.9% 1,000 ML 1000 ML IV ×2 (13:27→15:41)
[2024-12-20 13:30] LABS: Add Manual Diff / Slide Review NO; Basophils Absolute Auto 0 /uL (0-100); Basophils Percent Auto 0.4 % (0-2); Eosinophils Absolute Auto 0 /uL (0-450); Eosinophils Percent Auto 0.4 % (2-4); Hemoglobin 12.4 g/dL (13.5-17.5); Lymphocytes Absolute Auto 500 /uL (1100-4500); Lymphocytes Percent Auto 5.3 % (25-40); Mean Corpuscular HGB Conc 33.5 % (30-36); Mean Corpuscular Hemoglobin 32.6 PG (26-34); Mean Corpuscular Volume 97.4 fL (80-100); Monocytes Absolute Auto 400 /uL (0-900); Monocytes Percent Auto 4.6 % (3-14); Neutrophils Absolute Auto 8300 /uL (1500-7000); Neutrophils Percent Auto 89.3 % (50-75); Platelet Count 62 X10^3/uL (150-400); Red Cell Distribution Width 13.2 % (11.6-14.8); White Blood Cell Count 9.3 X10^3/uL (4.5-11.0)
--- NOTE | 2024-12-20 13:32 | EKG_ITS ---
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
[2024-12-20 13:34] LABS: Alanine Aminotransferase 56 IU/L (<50); Albumin 4.7 g/dL (3.5-5.0); Albumin Globulin Ratio 1.3 (1.0-2.8); Alkaline Phosphatase 64 U/L (38-126); Aspartate Aminotransferase 55 IU/L (17-59); BUN Creatinine Ratio 18.6 (6-22); Bilirubin Total 1.3 mg/dL (0.2-1.3); Blood Urea Nitrogen 16 mg/dL (9-20); Calcium 9.5 mg/dL (8.4-10.2); Carbon Dioxide 26 mmol/L (22-32); Chloride 100 mmol/L (98-107); Creatine Kinase 39 U/L (55-170); Estimated Glomerular Filt Rate > 60 mL/min (>60); Globulin 3.6 g/dL (1.7-4.1); Glucose 140 mg/dL (70-99); HEMOLYSIS 36 (0-50); Lipase 39 U/L (23-300); Potassium 4.1 mmol/L (3.4-5.1); Sodium 139 mmol/L (137-145); Total Protein 8.3 g/dL (6.3-8.2)
[2024-12-20 13:35] LABS: Lactate (Lactic Acid) 3.5 mmol/L (0.7-2.1)
[2024-12-20 13:45] LABS: Troponin I 0.022 ng/mL (0.01-0.034)
--- NOTE | 2024-12-20 13:49 | DI.CT.S_ITS ---
PROCEDURE: CT ABDOMEN PELVIS W CON INDICATIONS: vomiting acid reflux fall TECHNIQUE: After the administration of intravenous contrast, axial sections acquired from the lung bases to the pubic symphysis. Coronal and sagittal reformats were performed. For radiation dose reduction, the following was used: automated exposure control, adjustment of mA and/or kV according to patient size. COMPARISON: [facility], CT, CT HEAD/BRAIN WO CON, 12/20/2024, 13:44. [facility], CT, CT ABDOMEN PELVIS W CON, 10/25/2022, 14:34. FINDINGS: Image quality: Diagnostic. Lower Chest: Moderate coronary artery calcification is seen. A small hiatal hernia is incidentally noted. ABDOMEN: Liver: No solid mass. Gallbladder: Layering gallstones are seen. No additional CT findings of cholecystitis are seen. Biliary ducts: No biliary dilation. Pancreas: No ductal dilation. Spleen: Size is within normal limits. Adrenal Glands: No adrenal nodules. Kidneys and Ureters: No hydronephrosis. No solid mass. No complex renal cystic lesion which requires follow up. Stomach and Bowel: The stomach is moderately distended with fluid. Normal colonic caliber, without significant wall thickening. Colonic diverticulosis is seen, without findings of active diverticulitis. No dilated loops of small bowel are seen. Prior appendectomy Peritoneum: No abnormal intraperitoneal fluid. No free air. Ventral Wall: No significant ventral hernia. Abdominal Nodes: No retroperitoneal or mesenteric adenopathy by size criteria. Vessels: Aorta and inferior vena cava are normal in size. Atherosclerotic calcification is noted. PELVIS: Pelvic Organs: Unremarkable. Bladder: No bladder wall thickening, accounting for underdistention. Pelvic Nodes: No enlarged lymph nodes. Miscellaneous: There is a mild fat containing right inguinal hernia. Bones: No aggressive osseous abnormality. Age-appropriate bony degenerative changes are seen. IMPRESSION: The stomach is moderately distended with fluid. No significant small bowel abnormality is seen. No acute posttraumatic abnormality is seen. Colonic diverticulosis is seen, without findings of active diverticulitis. Additional findings: Moderate coronary artery calcification Small hiatal hernia Layering gallstones Appendectomy Mild fat containing right inguinal hernia Dictated by: Janes Martinez M.D. on 12/20/2024 at 13:39 Approved by: Janes Martinez M.D. on 12/20/2024 at 13:42
[2024-12-20 14:32] LABS: INR 1.2 (0.9-1.3); Prothrombin Time 13.3 SECONDS (9.4-12.5)
[2024-12-20 14:35] LABS: PTT Partial Thromboplastin Tim 36 SECONDS (25.1-36.5)
[2024-12-20 15:01] LABS: Reflexed Lactate in 2 Hours Y
[2024-12-20 15:21] LABS: Influenza A - CEPHEID Flu A NEGATIVE (NEGATIVE); Influenza B - CEPHEID Flu B NEGATIVE (NEGATIVE); Respiratory Syncytial Virus Negative (Negative)
[2024-12-20 15:23] LABS: COVID-19 CEPHEID 4-PLEX PCR Negative (Negative)
[2024-12-20 15:25] LABS: Add Manual Diff / Slide Review NO; Basophils Absolute Auto 0 /uL (0-100); Basophils Percent Auto 0.3 % (0-2); Eosinophils Absolute Auto 0 /uL (0-450); Hematocrit 40.8 % (41-53); Hemoglobin 13.5 g/dL (13.5-17.5); Lymphocytes Absolute Auto 500 /uL (1100-4500); Lymphocytes Percent Auto 4.3 % (25-40); Mean Corpuscular Hemoglobin 32.2 PG (26-34); Mean Corpuscular Volume 97.4 fL (80-100); Monocytes Absolute Auto 700 /uL (0-900); Monocytes Percent Auto 6.4 % (3-14); Neutrophils Absolute Auto 10400 /uL (1500-7000); Platelet Count 218 X10^3/uL (150-400); Red Blood Cell Count 4.19 X10^6/uL (4.5-5.9); Red Cell Distribution Width 13.6 % (11.6-14.8); White Blood Cell Count 11.7 X10^3/uL (4.5-11.0)
[2024-12-20 15:29] LABS: Lactate 2HR (Lactic Acid Rflx) 3.2 mmol/L (0.7-2.1)
[2024-12-20 15:41] LABS: Ictotest Urine Negative (Negative)
[2024-12-20 15:44] LABS: Bacteria Urine Occasional (0-1); RBC Urine None Seen (0-5/HPF); Urine Volume 10mL (spun); WBC Urine 0-1/HPF (0-5/HPF)
[2024-12-20 15:45] LABS: Culture Indicated Urine Cult Not Indicated; Squamous Epithelial Cell Urine None Seen (0-5/HPF)
[2024-12-20 16:10] LABS: Troponin I 0.022 ng/mL (0.01-0.034)
[2024-12-20] MEDS: ACETAMINOPHEN IV 1,000 MG/100 ML VIAL 400 MG IV (16:50)
[2024-12-20] MEDS: PANTOPRAZOLE 40 MG VIAL IV (16:51)
[2024-12-20] MEDS: OXYCODONE IR 5 MG TABLET PO (17:39)
[2024-12-20 18:16] LABS: Lactate (Lactic Acid) 1.8 mmol/L (0.7-2.1)
--- NOTE | 2024-12-20 18:21 | PC.NURSE ---
Ice water given to pt and he tolerated well
[2024-12-20] MEDS: BACITRACIN OINT 0.9 GM PCKT 1 APPLIC TOP (18:38)
[2024-12-20] MEDS: ONDANSETRON 4 MG ODT PREPACK 1 BOTTLE MISC (18:38)
--- NOTE | 2024-12-20 18:58 | PC.NURSE ---
ASSISTANT SUPERINTENDENT Note: Assisted patient by wheelchair to lobby to wait for ride. Patient felt safe to ambulate alone from wheelchair to ride when they arrive. Left patient close to entrance with wheels locked and foot pedals out of the way to prevent tripping.
== END 2024-12-20 18:48 | disposition home or self-care (01) ==
PROVIDERS: Emergency Provider Physician Assistant; PCP Physician Assistant
DX: R11.2 Nausea with vomiting, unspecified (principal); S01.81XD Laceration without foreign body of other part of head, subsequent encounter; I25.10 Atherosclerotic heart disease of native coronary artery without angina pectoris; W01.0XXD Fall on same level from slipping, tripping and stumbling without subsequent striking against object, subsequent encounter; Z87.891 Personal history of nicotine dependence
CPT/HCPCS: 0241U; 36415; 70450; 71045; 74177; 80053; 81003; 81015; 82550; 83605; 83690; 84484; 85025; 85610; 85730; 87040; 87086; 93005; 93010; 96361; 96365; 96375; 99284; J0131; J2405; J2470; Q9967

== ENCOUNTER → 2025-06-03 10:39 | Outpatient (CLI) | payer MEDICARE, OTHER, SELFPAY ==
--- NOTE | 2025-06-03 10:41 | DI.MRI.S_ITS ---
PROCEDURE: MR HEAD/BRAIN WO/W CON INDICATIONS: New daily headache, posterior to left eye TECHNIQUE: Noncontrast axial T1 spin echo, axial T2 fast spin echo, sagittal and axial FLAIR, coronal T2 fast spin echo, axial gradient echo, axial diffusion and ADC through the brain. After the administration of contrast, axial and coronal and sagittal T1 spin echo with fat saturation through the brain. COMPARISON: [facility], MR, MR HEAD/BRAIN WO CON, 04/08/2022, 10:52. [facility], CT, CT HEAD/BRAIN WO CON, 12/20/2024, 13:44. FINDINGS: Image quality: Diagnostic, with note made of motion artifact. CSF spaces: Basal cisterns are patent. No extra-axial fluid collections. Ventricles are normal in size and shape. Brain: No midline shift. No intracranial bleeds or masses. No abnormal intracranial enhancement. There is cerebral volume loss for age. There is periventricular white matter chronic small vessel ischemic change. The brainstem appears normal. Diffusion-weighted images demonstrate no acute infarct. No chronic ischemic insults. Normal intravascular flow voids are present. Skull and face: Calvarial marrow is normal in signal. Orbits appear normal. Note is made of bilateral lens replacements. Sinuses: Sinuses and mastoids appear clear. IMPRESSION: Unremarkable intracranial study, without an imaging explanation found for the patient's presenting history of headache. No masses or abnormal enhancement can be seen. Dictated by: Janes Martinez M.D. on 06/03/2025 at 12:36 Approved by: Janes Martinez M.D. on 06/03/2025 at 12:38
== END ==
LOC: MRI 10:41
PROVIDERS: PCP Physician Assistant; Referring Provider Physician Assistant; Visit Provider Physician Assistant
DX: G44.52 New daily persistent headache (NDPH) (principal)
CPT/HCPCS: 70553; A9579